=== PATIENT | female | born 1960 | race Caucasian/White ===

== ENCOUNTER → 2017-10-10 | Outpatient (CLI) | payer OTHER ==
[~2017-10-10] MED LIST: ACYC-57 PO; ALPR-411 PO; CARV3.12 PO; NORT25CA PO; NORT50CA PO; NSNN50; NXM/40 PO; WLC625 PO
== END | disposition home or self-care (01) ==
LOC: C.RDSM 08:00
PROVIDERS: ATTEND Orthopaedic Surgery
DX: M25.562 Pain in left knee (principal)

== ENCOUNTER → 2018-04-03 | Outpatient (CLI) | payer OTHER ==
[~2018-04-03] MED LIST changes: +ASPI81TA28 PO; +B-COTAB18 PO; +CALC600T9 PO; -CARV3.12 PO; +CHOL2000 PO; +CRG125 PO; +MOME6000; -NORT25CA PO; -NORT50CA PO; +NORT75CA4 PO; -NSNN50; +OMEG10007 PO; -WLC625 PO; +[UNRECOGNIZED DRUG - CODE] PO
== END | disposition home or self-care (01) ==
LOC: C.RDSM 14:29
PROVIDERS: ATTEND Orthopaedic Surgery
DX: M25.562 Pain in left knee (principal); Z98.890 Other specified postprocedural states

== ENCOUNTER 2019-01-24 08:57 | Inpatient (IN) ==
--- NOTE | 2019-01-01 15:50 | PAT Medication Instructions ---
Medication Instructions Date of Service January 01, 2019 Home Medications acyclovir [Zovirax] 200 mg PO QID alprazolam 0.5 mg PO BID PRN aspirin [Aspir-81] 81 mg PO QAM calcium carbonate-vitamin D3 1 tab PO QAM carvedilol 25 mg PO BID cholecalciferol (vitamin D3) 2,000 unit PO QAM cyanocobalamin (vitamin B-12) 1,500 mcg PO Q2D esomeprazole magnesium 40 mg PO QAM mometasone 2 spray INTRANASAL DAILY PRN nortriptyline 75 mg PO HS omega 3-ahg-wvq-fish oil [Fish Oil] 1 cap PO QAM vitamin B complex 1 tab PO QAM STOP taking 2 weeks before surgery omega 5-pqc-qwo-fish oil [Fish Oil] 1 cap PO QAM DO NOT take the morning of surgery calcium carbonate-vitamin D3 1 tab PO QAM cholecalciferol (vitamin D3) 2,000 unit PO QAM cyanocobalamin (vitamin B-12) 1,500 mcg PO Q2D vitamin B complex 1 tab PO QAM Take morning of surgery With a small sip of water, OTHERWISE NOTHING TO EAT OR DRINK AFTER MIDNIGHT: acyclovir [Zovirax] 200 mg PO QID alprazolam 0.5 mg PO BID PRN (if needed) aspirin [Aspir-81] 81 mg PO QAM carvedilol 25 mg PO BID esomeprazole magnesium 40 mg PO QAM mometasone 2 spray INTRANASAL DAILY PRN (if needed) Take evening before surgery acyclovir [Zovirax] 200 mg PO QID alprazolam 0.5 mg PO BID PRN (if needed) carvedilol 25 mg PO BID mometasone 2 spray INTRANASAL DAILY PRN (if needed) nortriptyline 75 mg PO HS Other Notes If you have any questions please call us at [phone] or [phone] or [phone] or [phone]
--- NOTE | 2019-01-02 12:30 | Anesthesiology Consultation ---
Date of Service January 02, 2019 Assessment & Plan (1) Encounter for pre-operative examination: - PCP addendum: 01/10/19: "clinically stable for surgery with no concerning labwork." - Patient anxious regarding anesthesia/surgery; reassurance given. "Does not want to hear anything during surgery"- requests deeper sedation if possible* Chart Review Chart Review: Acceptable Risk for Surgery and Patient seen in Pre Admission Testing History Surgery Operation Date: 01/24/19 11:55 Proposed Procedures p Left Total Hip Arthroplasty - Varghese Mukherjee MD Height/Weight Height: 5 ft 2 in Weight: 80.5 kg Allergies Allergy/AdvReac Type Severity Reaction Status Date / Time No Known Allergies Allergy Mild Verified 01/01/19 10:34 Medications Home Medications Medication Instructions Recorded Confirmed Last Taken acyclovir [Zovirax] 200 mg PO QID 01/01/19 01/01/19 Unknown alprazolam 0.5 mg PO BID PRN 01/01/19 01/01/19 Unknown aspirin [Aspir-81] 81 mg PO QAM 01/01/19 01/01/19 Unknown calcium carbonate-vitamin D3 1 tab PO QAM 01/01/19 01/01/19 Unknown [Calcium 500 + D] carvedilol 25 mg PO BID 01/01/19 01/01/19 Unknown cholecalciferol (vitamin D3) 2,000 unit PO QAM 01/01/19 01/01/19 Unknown [Vitamin D3] cyanocobalamin (vitamin B-12) 1,500 mcg PO Q2D 01/01/19 01/01/19 Unknown [Vitamin B-12] esomeprazole magnesium 40 mg PO QAM 01/01/19 01/01/19 Unknown mometasone 2 spray INTRANASAL DAILY PRN 01/01/19 01/01/19 Unknown nortriptyline 75 mg PO HS 01/01/19 01/01/19 Unknown omega 9-tph-guf-fish oil [Fish Oil] 1 cap PO QAM 01/01/19 01/01/19 Unknown vitamin B complex 1 tab PO QAM 01/01/19 01/01/19 Unknown Past Medical History Medical History Diverticular disease GERD (gastroesophageal reflux disease) CONTROLLED Hypertension Irritable bowel syndrome (IBS) Obesity Osteoarthritis Past Surgical History Surgical History History of arthroscopy KNEE, MENICUS. History of bilateral tubal ligation History of bunionectomy BUNIONECTOMY AND HAMMER TOE CORRECTION History of cholecystectomy History of hysterectomy History of nasal septoplasty DEVIATED SEPTUM REPAIR History of tooth extraction Past Anesthesia History No Hx of Anesthesia Complications and No Family Hx of Anesthesia Complications History of PONV No Motion Sickness Screening History of Motion Sickness: No Social History Smoking Status: Never smoker Do You Dip or Chew Tobacco: No Hx Alcohol Use: Yes Alcohol type: other alcohol intake frequency: a few times a week Hx Substance Use: No substance use type: does not use Exercise / Class Metabolic Activity II 4-5 Yardwork/Stairs/Walk up hill Review of Systems Patient denies chest pain, shortness of breath, dyspnea on exertion, cough, wheezing, palpitations. Physical Exam Vital Signs VITALS BP 134/85 P 71 TEMP 97.8 SP02 95%RA RESP 18 PHYSICAL Full neck and c-spine range of motion. Full TMJ range of motion. TMD 3.5 finger breaths Mallampati Score 2 Dentition: intact, implant on molar Lungs: clear throughout to auscultation Cardiac: regular rate and rhythm, no murmurs noted Spine: normal Carotid arteries: negative bruit Extremities: no edema Testing Electrocardiogram Date: 01/02/19 Findings: + NSR @ (73) Laboratory Results 01/02/19 12:37 01/02/19 12:37 Blood Type A Positive 01/02/19 12:37 Antibody Screen NEGATIVE 01/02/19 12:37 PT 11.1 Seconds (9.0-12.0) 01/02/19 12:37 INR 1.1 (0.9-1.1) 01/02/19 12:37 APTT 24.7 Seconds (21.0-31.0) 01/02/19 12:37 Hemoglobin A1c 5.6 % (4.5-5.6) 01/02/19 12:37 Urine Color Dark Yellow 01/02/19 12:37 Urine Appearance Clear (Clear) 01/02/19 12:37 Urine pH 7.0 (4.5-7.5) 01/02/19 12:37 Ur Specific [place] 1.012 (1.000-1.030) 01/02/19 12:37 Urine Protein Negative (Negative) 01/02/19 12:37 Urine Glucose (UA) Negative (Negative) 01/02/19 12:37 Urine Ketones Negative (Negative) 01/02/19 12:37 Urine Nitrite Negative (Negative) 01/02/19 12:37 Ur Leukocyte Esterase 1+ (Negative) H 01/02/19 12:37 Urine WBC (Auto) 1-5 /hpf (0-5) 01/02/19 12:37 Urine RBC (Auto) 0-4 /hpf (0-4) 01/02/19 12:37 U Hyaline Cast (Auto) 0 /lpf (0-5) 01/02/19 12:37 U Epithel Cells (Auto) >30 /lpf (0-5) H 01/02/19 12:37 Urine Bacteria (Auto) Negative (Negative) 01/02/19 12:37 01/02/19 12:37 Urine Culture - Final Urine,Clean Catch Three types or organisms present, all moderate counts probable skin jarad. No further identifications or sensitivities to follow.
[2019-01-02 14:28] LABS: Appearance Urine Clear (Clear); Bacteria Urine Automated Negative (Negative); Bilirubin Urine Negative (Negative); Blood Urine Negative (Negative); Cast Urine Automated 0 /lpf (0-5); Color Urine Dark Yellow; Epithelial Cell Urine Auto >30 /lpf (0-5); Glucose Urine UA Negative (Negative); Ketones Urine Negative (Negative); Leukocyte Esterase Urine 1+ (Negative); Nitrite Urine Negative (Negative); Protein Urine Negative (Negative); RBC Urine Automated 0-4 /hpf (0-4); Specific Gravity Urine 1.012 (1.000-1.030); Urobilinogen Urine Negative (Negative)
[2019-01-02 14:29] LABS: INR 1.1 (0.9-1.1); Partial Thromboplastin Ratio 0.9; Partial Thromboplastin Time 24.7 Seconds (21.0-31.0); Prothrombin Time 11.1 Seconds (9.0-12.0)
[2019-01-02 14:31] LABS: Albumin Level 3.7 gm/dl (3.4-5.0); BUN Creatinine Ratio 16.5 (10-20); Calcium 9.3 mg/dl (8.5-10.1); Est GFR (African American) 113.2; Est GFR (Non-African American) 97.7; Potassium 4.2 mmol/L (3.5-5.1)
[2019-01-02 14:34] LABS: Albumin Globulin Ratio 1.1 (0.9-2); Bilirubin,Total 0.5 mg/dl (0.2-1); Globulin 3.5 gm/dl (2.5-4.0); Total Protein 7.2 gm/dl (6.4-8.2)
--- NOTE | 2019-01-02 16:17 | History & Physical Report ---
Date of Service January 02, 2019 Assessment & Plan (1) Unilateral primary osteoarthritis, left hip: DIAGNOSES: Left hip osteoarthritis. PROCEDURE: Left total hip arthroplasty. PLAN: The patient is scheduled to undergo this procedure with Dr. Varghese Mukherjee at [facility] as an inpatient on 01/24/2019. Risks and complications of the procedure such as infection, bleeding, pain, scarring, nerve, blood vessel damage, weakness, wound problems, stiffness, incomplete relief of symptoms, heart attack, stroke, , hardware failure, loosening, wear, fracture, dislocation, leg length inequality, blood clots and embolism were explained to patient by Dr. Mukherjee at her visit on December 07 and informed consent to perform the procedure was obtained at that time. We are still awaiting preoperative medical clearance from the patient's primary care provider, Adelaida Martinez PA-C. We will also need to obtain a preoperative CBC with differential, complete metabolic panel, PT, INR, blood type and screen, urinalysis, urine culture, EKG, hemoglobin A1c and a nasal culture for MRSA. The patient states she will obtain this necessary testing before her preanesthesia clearance appointment this afternoon. The patient was given an order to obtain a rolling walker. I also instructed her about purchasing a hip kit from either [employer] or [employer]. She had x-rays performed with the sizing ball during today's visit. I educated her about the use of antibiotics prior to dental procedures after having joint replacement surgery. I also provided her with information about lectures provided by [facility] in regards to joint replacement surgery. She was given paperwork to obtain a handicap placard. We discussed discharge planning and the patient states she will most likely utilize [facility] to do in-home therapy as indicated. I advised her that I will provide her with a prescription for an opioid analgesic and for an anti-inflammatory medication. PDMP was checked during today's visit and no red flags were raised that would interfere with prescribing the narcotic medication. I also advised her that she will be using a baby aspirin twice daily for 30 days postoperatively to prevent blood clots and that she should purchase extra strength Tylenol to use with every other dose of the narcotic for pain control. The patient will need to sleep with an abduction pillow for 6 weeks postoperatively to prevent dislocation. She will be scheduled for a 2-week followup visit with me and at that time, we will remove her dressings. The patient verbalized understanding of all information provided during today's visit, thanked us for the care she has received and states if she has questions or concerns that should arise prior to her procedure date, she will contact the clinic accordingly. History of Present Illness Chief Complaint: CHIEF COMPLAINT: Left hip pain. Primary Care Provider: Adelaida Martinez PA-C HISTORY OF PRESENT ILLNESS: This 58-year-old female presents to clinic today for her preoperative history and physical. The patient complains of a longs tanding history of left hip pain localized to the groin area that has failed conservative treatment with use of nonsteroidal agents, injections and physical therapy. PAST SURGICAL HISTORY: Hysterectomy, left foot bunionectomy, hammertoe fixation, cholecystectomy, wisdom tooth extraction and a left knee partial medial meniscectomy with injection of calcium phosphate to fix a patellar fracture. PAST MEDICAL HISTORY: Anxiety, depression, hypertension, gastroesophageal reflux as well as hyperlipidemia and obesity. FAMILY HISTORY: Positive for heart disease, Alzheimer disease, hypertension, h yperlipidemia. ALLERGIES: The patient has no known drug allergies. CURRENT MEDICATIONS USED: EPA fish oil unknown dosage daily, vitamin B12 unknown dosage daily, carvedilol 3.125 mg oral tablet 25 mg twice daily, cholecalciferol, unknown dosage daily, magnesium SR with calcium unknown dosage daily, Nexium unknown dosage daily, nortriptyline 75 mg tablet daily, Xanax 0.5 mg oral tablet 1 tab twice daily as needed for anxiety. Allergies Allergy/AdvReac Type Severity Reaction Status Date / Time No Known Allergies Allergy Mild Verified 01/01/19 10:34 Home Medications Home Medications Medication Instructions Recorded Confirmed Type acyclovir [Zovirax] 200 mg PO QID 01/01/19 01/01/19 History alprazolam 0.5 mg PO BID PRN 01/01/19 01/01/19 History aspirin [Aspir-81] 81 mg PO QAM 01/01/19 01/01/19 History calcium carbonate-vitamin D3 1 tab PO QAM 01/01/19 01/01/19 History [Calcium 500 + D] carvedilol 25 mg PO BID 01/01/19 01/01/19 History cholecalciferol (vitamin D3) 2,000 unit PO QAM 01/01/19 01/01/19 History [Vitamin D3] cyanocobalamin (vitamin B-12) 1,500 mcg PO Q2D 01/01/19 01/01/19 History [Vitamin B-12] esomeprazole magnesium 40 mg PO QAM 01/01/19 01/01/19 History mometasone 2 spray INTRANASAL DAILY PRN 01/01/19 01/01/19 History nortriptyline 75 mg PO HS 01/01/19 01/01/19 History omega 8-qms-ejd-fish oil [Fish Oil] 1 cap PO QAM 01/01/19 01/01/19 History vitamin B complex 1 tab PO QAM 01/01/19 01/01/19 History Past Med/Surg History Medical History Diverticular disease GERD (gastroesophageal reflux disease) CONTROLLED Hypertension Irritable bowel syndrome (IBS) Obesity Osteoarthritis Surgical History History of arthroscopy KNEE, MENICUS. 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 No open skin lesions or discharge. Eyes: Pupils are equal and react to light and accommodating. Extraocular movements are intact. Throat: Posterior pharynx is clear with absence of edema, erythema or exudate. Cardiovascular exam: The patient has a regular rate and rhythm, no murmurs, gallops appreciated. Lungs: Auscultation of lung quintana reveals clear breath sounds throughout, no wheezing, rales or rhonchi. Abdomen is obese, nondistended, nontender with normoactive bowel sounds. Extremities: Left hip, the patient is able to flex to 100 degrees before causing recurrent right groin pain. External rotation is limited to 40 degrees, internal rotation to 5 degrees. The patient has a positive Scour and impingement tests, positive Stinchfield test. Log roll test is unremarkable. The patient experiences referred groin pain with active abduction and adduction without applied resistance. JAMES test is 3 1/2 fists. The patient has tenderness to palpation over the anterior groin. Otherwise, she is neurovascularly intact in the left lower extremity. Her calf is soft and supple, nontender to palpation. She has no appreciable quadriceps atrophy. Neurological exam: Cranial nerves 2-12 are intact. No motor or sensory deficit. Psychological/general exam: The patient is alert and oriented x3 with proper grooming and hygiene. Results & Data Laboratory Results Laboratory Results - last 24 hr 01/02/19 01/02/19 01/02/19 12:37 12:37 12:37 PT 11.1 INR 1.1 APTT 24.7 PTT Ratio 0.9 Sodium Potassium Chloride Carbon Dioxide Anion Gap BUN Creatinine Est Cr Clr Drug Dosing Est GFR ( Amer) Est GFR (Non-Af Amer) BUN/Creatinine Ratio Glucose Calcium Total Bilirubin AST ALT Alkaline Phosphatase Total Protein Albumin Globulin Albumin/Globulin Ratio Urine Color Dark Yellow Urine Appearance Clear Urine pH 7.0 Ur Specific [place] 1.012 Urine Protein Negative Urine Glucose (UA) Negative Urine Ketones Negative Urine Blood Negative Urine Nitrite Negative Urine Bilirubin Negative Urine Urobilinogen Negative Ur Leukocyte Esterase 1+ H Urine WBC (Auto) 1-5 Urine RBC (Auto) 0-4 U Hyaline Cast (Auto) 0 U Epithel Cells (Auto) >30 H Urine Bacteria (Auto) Negative Nasal Screen MRSA (PCR) Blood Type A Positive Antibody Screen NEGATIVE 01/02/19 01/02/19 12:37 12:37 PT INR APTT PTT Ratio Sodium 135 L Potassium 4.2 Chloride 102 Carbon Dioxide 28 Anion Gap 5.0 BUN 11 Creatinine 0.64 Est Cr Clr Drug Dosing 93.0 Est GFR ( Amer) 113.2 Est GFR (Non-Af Amer) 97.7 BUN/Creatinine Ratio 16.5 Glucose 101 H Calcium 9.3 Total Bilirubin 0.5 AST 27 ALT 44 Alkaline Phosphatase 125 H Total Protein 7.2 Albumin 3.7 Globulin 3.5 Albumin/Globulin Ratio 1.1 Urine Color Urine Appearance Urine pH Ur Specific [place] Urine Protein Urine Glucose (UA) Urine Ketones Urine Blood Urine Nitrite Urine Bilirubin Urine Urobilinogen Ur Leukocyte Esterase Urine WBC (Auto) Urine RBC (Auto) U Hyaline Cast (Auto) U Epithel Cells (Auto) Urine Bacteria (Auto) Nasal Screen MRSA (PCR) Negative Blood Type Antibody Screen
[2019-01-02 17:37] LABS: Basophils # (auto) 0.01 K/uL (0-0.2); Basophils % (auto) 0.2 %; Eosinophils # (auto) 0.14 K/uL (0-0.5); Eosinophils % (auto) 2.4 %; Hematocrit (blood only) 39.9 % (37-47); Hemoglobin 13.5 g/dL (12.0-16.0); Immature Granulocytes # (auto) 0.01 K/uL (0.00-0.02); Immature Granulocytes % (auto) 0.2 %; Lymphocytes # (auto) 1.79 K/uL (1.2-3.4); Lymphocytes % (auto) 30.6 %; Mean Corpuscular Hgb Conc 33.8 g/dL (32-36); Mean Corpuscular Volume 92.4 fL (80-100); Monocytes # (auto) 0.48 K/uL (0.11-0.59); Monocytes % (auto) 8.2 %; Neutrophils # (auto) 3.42 K/uL (1.4-6.5); Neutrophils % (auto) 58.4 %; Platelet Count 214 K/uL (130-400); Red Blood Count 4.32 M/uL (4.2-5.4); White Blood Count 5.85 K/uL (4.8-10.8)
[2019-01-03 05:38] LABS: Estimated Average Glucose 114 mg/dl; Hemoglobin A1C 5.6 % (4.5-5.6)
[~2019-01-24 08:57] MED LIST changes: +ACETAMINOPHEN 500 MG TAB PO SCH; -ACYC-57 PO; -ALPR-411 PO; -ASPI81TA28 PO; -B-COTAB18 PO; +BUPIVACAINE 0.5 % 5 MG/1 ML PF 10ML VIAL ONE; -CALC600T9 PO; +CEFAZOLIN 2000MG 2,000 MG/15 ML SYR IV SCH; -CHOL2000 PO; -CRG125 PO; +CeleBREX 200 MG CAP PO SCH; +FAMOTIDINE 20 MG TAB PO SCH; +LIDOCAINE HCL 2% 2 ML VIAL/AMP(20MG/ML) INFIL ONE; +LR 500ML BOLUS, THEN 15ML/HR IV SCH; +LR 60ML/HR IV SCH; +METOCLOPRAMIDE HCL 10 MG TABLET PO SCH; +MIDAZOLAM HCL 1 MG/ML 2ML VIAL ONE; -MOME6000; -NORT75CA4 PO; -NXM/40 PO; -OMEG10007 PO; +PROPOFOL IV EMULSION 10 MG/ML 20 ML VIAL IV ONE; +ROPIVACAINE 0.5% HCL/PF 150 MG, BUPIVACAINE 0.5% MPF 30 ML, EPINEPHrine 0.15 MG, Ketoro... INFIL SCH; +SCOPOLAMINE 1.5 MG TDSY TD SCH; +TRANEXAMIC ACID 1,000 MG **IV Intra-op IV SCH; +TRANEXAMIC ACID 1,000 MG **IV Pre-op IV SCH; -[UNRECOGNIZED DRUG - CODE] PO; +dexAMETHasone 4 MG TAB PO SCH
[2019-01-24] MEDS ORDERED: POVIDONE-IODINE OP SOLN 30 ML BTL ONE (10:34)
[2019-01-24] MEDS ORDERED: ORTHO JOINT ANESTHETIC ONE (10:34)
--- NOTE | 2019-01-24 10:57 | History & Physical Bridge Note ---
Date of Service January 24, 2019 History & Physical Bridge Note I have examined the patient, reviewed the History & Physical and in the interval since the performance of the History & Physical I have noted the following changes of clinical significance: no changes noted
[2019-01-24] MEDS ORDERED: ONDANSETRON INJ 2 MG/ML 2 ML VIAL IV PRN ×2 (11:48→12:54)
[2019-01-24] MEDS ORDERED: fentaNYL citrate 100 MCG/2 ML VIAL IV PRN (11:48)
[2019-01-24] MEDS ORDERED: ATROPINE SULFATE 0.1 MG/ML 10ML SYR IV PRN (11:48)
[2019-01-24] MEDS ORDERED: HYDROmorphone INJ 1 MG/ML SYRINGE IV PRN (11:48)
[2019-01-24] MEDS ORDERED: ePHEDrine sulfate 50 MG/ML AMP IV PRN (11:48)
[2019-01-24] MEDS ORDERED: PROPOFOL IV EMULSION 10 MG/ML 20 ML VIAL IV ONE (12:16)
--- NOTE | 2019-01-24 12:40 | Post Operative Brief Note ---
Immediate Post Op Note v1 Date of Surgery January 24, 2019 Pre & Post Diagnosis Operation Date: 01/24/19 11:15 Pre-Op Diagnosis: Left Hip Osteoarthritis Post-Op Diagnosis: Left Hip Osteoarthritis Procedure Operation Date: 01/24/19 11:15 Actual Procedures p Left Total Hip Arthroplasty(Left) - Varghese Mukherjee MD Surgeon Varghese Mukherjee MD Stapler Coil Unit BEKAH Ordoñez PA-C Estimated Blood Loss 50 Findings Consistent with Post-Op Diagnosis Fluids 1200 cc Specimens Femoral head Anesthesia Type Spinal MAC Complications none Disposition Accompanied Patient To Recovery: No Disposition: Recovery Room
[2019-01-24] MEDS ORDERED: ALUMINUM/MAGNESIUM SUSP 30 ML UDC PO PRN (12:54)
[2019-01-24] MEDS ORDERED: HYDROmorphone INJ 0.5 MG/0.5 ML SYR IV PRN (12:54)
[2019-01-24] MEDS ORDERED: BISACODYL 10 MG SUPP PR PRN (12:54)
[2019-01-24] MEDS ORDERED: METOCLOPRAMIDE HCL INJ 5 MG/ML 2 ML VIAL IV PRN (12:54)
[2019-01-24] MEDS ORDERED: DiphenhydrAMINE HCL 50 MG/ML VIAL IV PRN (12:54)
[2019-01-24] MEDS ORDERED: OXYCODONE HCL IR 5 MG TAB (IMMEDIATE RELEASE) PO PRN (12:54)
[2019-01-24] MEDS ORDERED: MAGNESIUM HYDROXIDE SUSP 30 ML UDC PO PRN (12:54)
[2019-01-24] MEDS ORDERED: NALOXONE HCL 0.4 MG/1 ML VIAL/CARP IV PRN (12:54)
--- NOTE | 2019-01-24 12:54 | Operative Report ---
Post Operative Report Pre & Post Diagnosis Operation Date: 01/24/19 11:15 Pre-Op Diagnosis: Left Hip Osteoarthritis Post-Op Diagnosis: Left Hip Osteoarthritis Procedure Operation Date: 01/24/19 11:15 Actual Procedures p Left Total Hip Arthroplasty(Left) - Varghese Mukherjee MD Surgeon Varghese Mukherjee MD Bench Manager BEKAH Ordoñez PA-C Estimated Blood Loss 50 Findings Consistent with Post-Op Diagnosis Specimens femoral head Complications none Disposition Accompanied Patient To Recovery: Yes Disposition: Recovery Room Description of Procedure I was present during the entire case assisting with wound closure and dressing application. Please see Dr. Mukherjee procedure note for specifics of the case. I attest to the content of the Intraoperative Record and any orders documented therein. Any exceptions are noted below.
[2019-01-24] MEDS ORDERED: ALPRAZolam 0.5 MG TABLET PO PRN (12:57)
[2019-01-24] MEDS ORDERED: ACYCLOVIR 200 MG CAP PO PRN (12:57)
[2019-01-24] MEDS ORDERED: FLUTICASONE PROPIONATE NA SPR 16 GM BTL PRN (12:57)
--- NOTE | 2019-01-24 13:33 | XRay Report ---
XR hip 1V LT w pelvis CLINICAL HISTORY: 58 years-old Female presenting with IN PACU - A/P PELVIS and LATERAL HIP . TECHNIQUE: Single frontal view of the pelvis and crosstable lateral view of the left hip were obtaine d. COMPARISON: 01/02/2019. FINDINGS: Total left hip arthroplasty new from prior exam. No periprosthetic fracture or periprosthetic lucency . No malalignment. The remainder of the bony pelvis is intact. Degenerative changes of the right hip with joint space loss and significant osteophytosis. IMPRESSION: Expected postsurgical appearance status post total left hip arthroplasty. Electronically signed by: Varghese Janesn M.D. 01/24/2019 1:31 PM
--- NOTE | 2019-01-24 13:36 | Operative Report ---
DATE OF OPERATION: 01/24/2019 PREOPERATIVE DIAGNOSIS: Left hip arthritis. POSTOPERATIVE DIAGNOSES: Left hip arthritis. OPERATION PERFORMED: Left total hip arthroplasty. SURGEON: Varghese Mukherjee MD. JUVENILE COURT JUDGE: Omar Ordoñez. ESTIMATED BLOOD LOSS: 50 mL. INTRAVENOUS FLUIDS: 1200 mL crystalloid. SPECIMENS: Femoral head. COMPLICATIONS: None. IMPLANTS: 1. DePuy Gription 54 mm outer diameter acetabular sector cup. 2. A 6.5 mm x 40 mm cancellous bone screw. 3. DePuy Ultrex polyethylene liner for a 36 femoral head. 4. DePuy [place] size 4 standard offset femoral stem with a 12/14 taper. 5. A 36 mm ceramic head with a +1.5 mm offset. INDICATIONS: Ms. Mcdaniels is a 58-year-old female who has had left hip pain that is affecting her activities of daily living and is refractory to conservative management. She has x-rays that show [id number] osteoarthritis. I had a long discussion with her about the risks and benefits of surgery, alternatives to surgery and expected outcomes. After reviewing all these, she elected to proceed with surgery. All questions were answered. Informed consent was signed. OPERATIVE FINDINGS: The patient had severe degenerative osteoarthritis. A ceramic on polyethylene bearing total hip arthroplasty was performed. DESCRIPTION OF THE OPERATION: The patient was identified in the preoperative holding area where her surgical site was marked. She was given a spinal by anesthesia, then brought back to the main operating room where she was placed on the operating room table and moved into the lateral decubitus position. Axillary roll was placed. All bony prominences were padded. Perioperative antibiotics were administered. She was prepped and draped in the normal sterile fashion. Prior to incision, a multidisciplinary timeout was called. All in the room were in agreement. We began by making a posterior approach to the hip through a 16 cm long incision. Fascia was incised in line with the incision. Charnley bow was placed. Trochanteric bursa was excised. The quadratus femoris and short external rotators as well as piriformis were dissected off the posterior aspect of the hip. Box cut was made in the capsule. The hip was dislocated. Femoral neck cut was made at 10 mm. Her lesser trochanter to the center of the head distance before the cut was measured at 55 mm. We then exposed the acetabulum. The labrum was excised. The contents of cotyloid fossa were removed with a curette and a rongeur. We then began to ream her acetabulum. We started with a size 44 reamer and medialized her acetabulum. We then sequentially reamed her up to a size 54 mm cup. This was then impacted down in position with 40 degrees of lateral opening and 25 degrees of anteversion. A single cancellous bone screw was placed up into the ilium. Excellent fixation was obtained. We then impacted the polyethylene liner for a 36-mm femoral head. Next, the femoral neck was exposed. The lateral hip capsule and the lateral neck were removed with a cookie cutter. A lateralizing reamer was used followed by the intramedullary reamer. She was reamed up to a size 4. We broached her all the way up to a size 4. We then trialed with a +1.5 mm femoral head. We measured her lesser trochanter to center of the femoral head distance and it was 55 mm matching her [place] hip. The patient's leg lengths were symmetric. She had no impingement in external rotation and extension. She was stable in the sleeper position. At 90 degrees of hip flexion, she could be internally rotated to 50 degrees before leaving out of the cup. I was very happy with the stability exam. Therefore, I removed all the trial components. The intramedullary canal was irrigated and dried. The real size 4 [place] femoral stem with a standard offset was impacted down into position. It sat at the same level as the broach. Therefore, the +1.5 mm femoral head was opened up and gently impacted onto the trunnion. The hip was then atraumatically reduced. At this point, the wound was irrigated with Betadine that was allowed to sit for 3 minutes. The subcutaneous tissues and the periarticular soft tissues were injected with our injection cocktail. We then closed the piriformis and short external rotators with capsule through bone tunnels in the greater trochanter. The fascia was run with a looped #1 PDS. The subcutaneous tissues were closed in 2 layers of running #1 PDS. The deep dermis was closed using 2-0 Vicryl. ZipLine was placed followed by Silverlon dressing and a compressive dressing. The patient was rolled supine, placed in an abduction pillow. Her sedation was lifted and she was transferred to the recovery room in stable condition. POSTOPERATIVE COURSE: The patient will be admitted to the floor overnight for pain control and monitoring. She will be on aspirin for DVT prophylaxis. She will observe posterior hip precautions. I attest to the content of the Intraoperative Record and any orders documented therein. Any exception s are noted below.
--- NOTE | 2019-01-24 14:31 | Anesthesiology Progress Note ---
Date of Service January 24, 2019 Anesthesia Post Procedure Vital Signs Vital Signs: Temp Pulse Pulse Resp BP Pulse Ox 01/24/19 14:00 86 18 107/70 95 01/24/19 13:45 85 19 110/79 99 01/24/19 13:30 36.5 C 82 17 113/74 97 01/24/19 13:20 84 16 122/77 97 01/24/19 13:10 82 17 107/70 97 01/24/19 13:00 82 16 107/70 98 01/24/19 12:52 36.1 C L 84 20 89/65 L 90 01/24/19 09:30 36.8 C 93 H 20 124/86 95 Pain Intensity Left Hip: Pain Intensity: 4 Transfer of Care Handoff Completed per policy Notes Mental Status: alert / awake / arousable and participated in evaluation Patient Amnestic to Procedure: Yes Nausea / Vomiting: adequately controlled Pain: adequately controlled Airway Patency, RR, SpO2: stable & adequate BP & HR: stable & adequate Hydration State: stable & adequate Neuraxial Anesthesia: was administered and sensory block is resolving Anesthetic Complications: no major complications apparent and Pt Satisfied with anesthetic care
[2019-01-24] MEDS: ACETAMINOPHEN 500 MG TAB PO SCH ×2 (16:00→22:25)
[2019-01-24] MEDS: KETOROLAC 30 MG/ML VIAL IV SCH ×2 (16:00→22:25)
[2019-01-24] MEDS: CHECK SCOPOLAMINE PATCH PLACEMENT SCH ×2 (16:00→23:24)
[2019-01-24] MEDS: SODIUM CHLORIDE 0.9% 1000ML 1,000 ML IV SCH (17:47)
[2019-01-24] MEDS: CEFAZOLIN 2000MG 2,000 MG/15 ML SYR IV SCH (18:00)
[2019-01-24] MEDS ORDERED: TRANEXAMIC ACID 1,000 MG in 0.9 % SODIUM CHLORIDE 100 ML IV SCH (19:00)
[2019-01-24] MEDS: ASPIRIN 81 MG ECTAB PO SCH (20:24)
[2019-01-24] MEDS: DOCUSATE SODIUM 100 MG CAP PO SCH (20:24)
[2019-01-24] MEDS: CARVEDILOL 25 MG TAB PO SCH (20:24)
[2019-01-24] MEDS ORDERED: NORTRIPTYLINE HCL 25 MG CAP PO SCH (21:00)
[2019-01-24] MEDS ORDERED: SENNA 8.6 MG TAB PO SCH (21:00)
[2019-01-25] MEDS: CEFAZOLIN 2000MG 2,000 MG/15 ML SYR IV SCH (02:34)
[2019-01-25] MEDS: KETOROLAC 30 MG/ML VIAL IV SCH ×2 (04:38→09:21)
[2019-01-25] MEDS: ACETAMINOPHEN 500 MG TAB PO SCH (05:27)
[2019-01-25 05:39] LABS: Hematocrit (blood only) 31.7 % (37-47); Hemoglobin 10.8 g/dL (12.0-16.0); Immature Granulocytes # (auto) 0.03 K/uL (0.00-0.02); Immature Granulocytes % (auto) 0.3 %; Lymphocytes # (auto) 0.65 K/uL (1.2-3.4); Lymphocytes % (auto) 6.2 %; Mean Corpuscular Hgb Conc 34.1 g/dL (32-36); Mean Corpuscular Volume 91.1 fL (80-100); Mean Platelet Volume 9.3 fL (7.4-10.4); Monocytes # (auto) 0.69 K/uL (0.11-0.59); Monocytes % (auto) 6.6 %; Neutrophils % (auto) 86.9 %; Platelet Count 175 K/uL (130-400); RDW Coefficient of Variation 12.9 % (11.5-14.5); Red Blood Count 3.48 M/uL (4.2-5.4); White Blood Count 10.47 K/uL (4.8-10.8)
[2019-01-25 06:06] LABS: BUN Creatinine Ratio 15.7 (10-20); Calcium 8.3 mg/dl (8.5-10.1); Creatinine Clr Calc Pharmacy 108.5 ml/min; Est GFR (Non-African American) 102.7; Potassium 3.9 mmol/L (3.5-5.1)
[2019-01-25] MEDS: SODIUM CHLORIDE 0.9% 1000ML 1,000 ML IV SCH (06:06)
[2019-01-25] MEDS: DOCUSATE SODIUM 100 MG CAP PO SCH (07:59)
[2019-01-25] MEDS: CARVEDILOL 25 MG TAB PO SCH (07:59)
[2019-01-25] MEDS: ASPIRIN 81 MG ECTAB PO SCH (07:59)
[2019-01-25] MEDS ORDERED: dexAMETHasone 4 MG TAB PO SCH (08:00)
--- NOTE | 2019-01-25 08:13 | Anesthesiology Progress Note ---
Date of Service January 25, 2019 Anesthesia Post Procedure Vital Signs Vital Signs: Temp Pulse Pulse Pulse Pulse Resp BP 01/25/19 07:59 36.7 C 90 18 01/25/19 02:27 36.5 C 86 16 01/24/19 23:21 36.8 C 88 16 01/24/19 20:21 93 H 118/80 01/24/19 19:32 36.7 C 90 16 01/24/19 17:15 36.7 C 87 16 01/24/19 16:15 36.5 C 89 16 01/24/19 15:15 36.6 C 91 H 16 01/24/19 14:44 36.8 C 88 18 01/24/19 14:00 86 18 01/24/19 13:45 85 19 01/24/19 13:30 36.5 C 82 17 01/24/19 13:20 84 16 01/24/19 13:10 82 17 01/24/19 13:00 82 16 01/24/19 12:52 36.1 C L 84 20 01/24/19 09:30 36.8 C 93 H 20 BP Pulse Ox 01/25/19 07:59 116/78 94 01/25/19 02:27 115/77 91 01/24/19 23:21 116/75 91 01/24/19 20:21 01/24/19 19:32 121/80 97 01/24/19 17:15 112/74 94 01/24/19 16:15 104/68 94 01/24/19 15:15 117/79 96 01/24/19 14:44 123/85 98 01/24/19 14:00 107/70 95 01/24/19 13:45 110/79 99 01/24/19 13:30 113/74 97 01/24/19 13:20 122/77 97 01/24/19 13:10 107/70 97 01/24/19 13:00 107/70 98 01/24/19 12:52 89/65 L 90 01/24/19 09:30 124/86 95 Pain Intensity Left Hip: Pain Intensity: 2 Notes Mental Status: alert / awake / arousable Nausea / Vomiting: adequately controlled Pain: adequately controlled Airway Patency, RR, SpO2: stable & adequate BP & HR: stable & adequate Hydration State: stable & adequate Neuraxial Anesthesia: was administered and sensory block resolved Anesthetic Complications: no major complications apparent and Pt Satisfied with anesthetic care
[2019-01-25] MEDS ORDERED: CYANOCOBALAMIN 500 MCG TABLET (VITAMIN B-12) PO SCH (09:00)
[2019-01-25] MEDS ORDERED: CALCIUM 600MG + VIT D 400 IU TAB PO SCH (09:00)
[2019-01-25] MEDS ORDERED: CHOLECALCIFEROL 1,000 UNITS TAB PO SCH (09:00)
[2019-01-25] MEDS ORDERED: OMEGA-3 (PURIFIED FISH OIL) 1 GM CAP PO SCH (09:00)
[2019-01-25] MEDS ORDERED: ASPIRIN 81 MG ECTAB PO SCH (09:00)
[2019-01-25] MEDS ORDERED: PANTOprazole 40 MG TAB PO SCH (09:00)
[2019-01-25] MEDS ORDERED: VITAMIN B COMPLEX TAB PO SCH (09:00)
[2019-01-25] MEDS ORDERED: MULTIVITAMIN TAB PO SCH (09:00)
--- NOTE | 2019-01-25 10:18 | Orthopedic Progress Note ---
Date of Service January 25, 2019 Assessment & Plan (1) S/P total hip arthroplasty: PT/OT with in patient Plan on discharge after lunch today Pain control with PO meds DVT prophylaxis with Aspirin and Stocking Total hip precaution Abduction pillow use for 6 wks WBAT with walker assistance F/u at [facility] as scheduled in 2 wks Subjective Patient is day 1 s/p left total hip arthroplasty. Doing very well. Sitting at chair. Just finished with AM PT. Has no complaints of CP, SOB, nausea, vomiting, fever, chills or sweats. Pain in hip well controlled with PO meds. Patient will be ready for discharge after being seen by OT. Review of Systems Review of Systems: All systems reviewed & are unremarkable except as noted in HPI & below Physical Exam Physical Exam: Left Hip: Non-tender to palpation over incision site. Dressing clean, dry and intact. No pain with SLRT. NO pain with log roll, light internal or external rotation. Quad strength 4/5. Calf soft and supple. NV intact Results & Data Vital Signs (Past 12 Hours) Vital Signs Temp Pulse Pulse Resp BP Pulse Ox 01/25/19 07:59 36.7 C 90 18 116/78 94 01/25/19 02:27 36.5 C 86 16 115/77 91 01/24/19 23:21 36.8 C 88 16 116/75 91
--- NOTE | 2019-01-25 11:54 | Discharge Summary ---
Date of Service January 25, 2019 Admission HPI Per Admitting Provider HISTORY OF PRESENT ILLNESS: This 58-year-old female presents to clinic today for her preoperative history and physical. The patient complains of a longstanding history of left hip pain localized to the groin area that has failed conservative treatment with use of nonsteroidal agents, injections and physical therapy. PAST SURGICAL HISTORY: Hysterectomy, left foot bunionectomy, hammertoe fixation, cholecystectomy, wisdom tooth extraction and a left knee partial medial meniscectomy with injection of calcium phosphate to fix a patellar fracture. PAST MEDICAL HISTORY: Anxiety, depression, hypertension, gastroesophageal reflux as well as hyperlipidemia and obesity. FAMILY HISTORY: Positive for heart disease, Alzheimer disease, hypertension, hyperlipidemia. ALLERGIES: The patient has no known drug allergies. CURRENT MEDICATIONS USED: EPA fish oil unknown dosage daily, vitamin B12 unknown dosage daily, carvedilol 3.125 mg oral tablet 25 mg twice daily, cholecalciferol, unknown dosage daily, magnesium SR with calcium unknown dosage daily, Nexium unknown dosage daily, nortriptyline 75 mg tablet daily, Xanax 0.5 mg oral tablet 1 tab twice daily as needed for anxiety. Admission Exam Per Admitting Provider Physical Exam Vital Signs (Past 24 Hours): PHYSICAL EXAMINATION: Skin: The patient's skin is normal in appearance. No open skin lesions or discharge. Eyes: Pupils are equal and react to light and accommodating. Extraocular movements are intact. Throat: Posterior pharynx is clear with absence of edema, erythema or exudate. Cardiovascular exam: The patient has a regular rate and rhythm, no murmurs, gallops appreciated. Lungs: Auscultation of lung quintana reveals clear breath sounds throughout, no wheezing, rales or rhonchi. Abdomen is obese, nondistended, nontender with normoactive bowel sounds. Extremities: Left hip, the patient is able to flex to 100 degrees before causing recurrent right groin pain. External rotation is limited to 40 degrees, internal rotation to 5 degrees. The patient has a positive Scour and impingement tests, positive Stinchfield test. Log roll test is unremarkable. The patient experiences referred groin pain with active abduction and adduction without applied resistance. JAMES test is 3 1/2 fists. The patient has tenderness to palpation over the anterior groin. Otherwise, she is neurovascularly intact in the left lower extremity. Her calf is soft and supple, nontender to palpation. She has no appreciable quadriceps atrophy. Neurological exam: Cranial nerves 2-12 are intact. No motor or sensory deficit. Psychological/general exam: The patient is alert and oriented x3 with proper grooming and hygiene. Principal Diagnosis Left hip osteoarthritis Discharge Exam Physical Exam Physical Exam: Left Hip: Non-tender to palpation over incision site. Dressing clean, dry and intact. No pain with SLRT. NO pain with log roll, light internal or external rotation. Quad strength 4/5. Calf soft and supple. NV intact Discharge Data Allergies Allergy/AdvReac Type Severity Reaction Status Date / Time No Known Allergies Allergy Mild Verified 01/24/19 09:19 Consultations 01/25/19 08:00 Consult Case Management - Discharge Planning Routine Procedures Performed Operation Date: 01/24/19 11:15 Actual Procedures p Left Total Hip Arthroplasty(Left) - Varghese Mukherjee MD Ordered Studies 01/24/19 05:00 US - OR guided needle placemen Routine Hospital Course (1) S/P total hip arthroplasty: Post op day 1 s/p Left CARA. Did well overnight. No issues or complaints. Ready for discharge. PT/OT with in patient Plan on discharge after lunch today Pain control with PO meds DVT prophylaxis with Aspirin and Stocking Total hip precaution Abduction pillow use for 6 wks WBAT with walker assistance F/u at [facility] as scheduled in 2 wks Total Time Total Time Spent Total Time Spent (In Minutes): 20 Total Time Includes: Examination of the Patient, Discharge Planning and Medication Reconciliation Discharge Plan Discharge Items Patient Disposition: Home - Self-Care Reason For Visit: Left Hip Osteoarthritis Discharge Diagnosis: left hip osteoarthritis Discharge Goals: Decrease discomfort, Improve function and Increase independence Activity: As commented below Lifting: None Bathing: Keep incision dry Bathing Comment: May shower tomorrow Sexual Activity: Wait until after follow-up appointment Exercise/Sports: Wait until after follow-up appointment Driving/Machine Use Comment: No driving until cleared by orthropedic specialist Weightbearing: Left weightbearing Weightbearing Comment: as tolerated with walker assistance Non-emergency contact: Primary Care Provider Call non-emergency contact if: you have any medication questions, your pain is not controlled, your temperature is above 101.5, your wound has increased drainage and your wound pain has increased Follow-up/Referrals: Juan,Adelaida J., PA-C [Primary Care Provider] - Diet: Regular Addtl Provider Instructions: Post-operative Instructions Dear Patient and Family/Friends, Before you are discharged from the hospital, it is important to know what to expect when you get home after surgery. To that end, we have created this sheet of discharge instructions which covers many commonly asked questions. Make sure you go through this sheet in its entirety with your nurse before you are discharged. Please note that we will go over the specifics of your surgery and recovery when you return for your first post-operative visit. Sincerely, Dr. Mukherjee MEDICATIONS: You will be discharged on medications for pain control and for blood clot prevention. Oxycodone 5 mg will be prescribed. You make take this medication every 4-6 hrs as needed for pain. This medication is a narcotic and may cause drowsiness and constipation. You will also be prescribed Diclofenac Sodium 75 mg. This medication is for pain control. It is an NSAID. You make taked 2 tabs by mouth twice daily for 30 days post operatively. Also you should purchase OTC extra strength Tylenol (500mg) to take with every other dose of the Oxycodone for the first few days post op, then may take 1-2 tabs every 6 hrs for pain control. Lastly, you will need to purchase Aspirin 81 mg to be taken twice daily for blood clot prevention. Pain Expect to be in a fair amount of pain after surgery. Remember, our goal is not to eliminate your pain, but to make it tolerable. It is a good idea to stay ahead of your pain by taking the medications you were prescribed once you get home. Typically, the pain starts improving 3-7 days after surgery. You should start weaning off the narcotic pain medication (oxycodone, hydrocodone, hydromorphone, morphine) as soon as your pain improves. Please call our office if your pain is not adequately controlled. Ice Ice your operative site at least 5 times a day for 15-30 minutes at a time. Make sure you have a thin cloth between the ice or cooling unit and your skin to prevent genao bite. This is especially important if you received a nerve block. Continue icing your operative site for the first 5-7 days after surgery, then as needed. Diet/Nausea/Vomiting Start by drinking clear liquids and eating crackers. If you can tolerate this, then you may resume your normal diet. If you feel nauseated or vomit, take Zofran/ondansetron (if prescribed). Please call our office if you have intractable nausea or vomiting, or, if after hours, you may go to the Emergency Room for help. Constipation Constipation is a common side effect of narcotic pain medication. If you have not had a bowel movement within 2 days after surgery, we recommend purchasing an over the counter laxative such as Milk of Magnesia, Dulcolax, or Miralax from a local pharmacy, and taking it as instructed. Call our clinic if any questions. Nerve block The anesthesia team sometimes places a nerve block to help with post-operative pain control. This results in significant numbness and inability to move the extremity. The nerve block usually wears off in 8-12 hours, but sometimes can last up to 24 hours. Please call our office if you are still unable to move your extremity after 24 hours, unless you received a pain pump to take home. Nerve blocks typically wear off quickly, so start taking pain medication as soon as you start feeling soreness near your surgical site. Weight bearing and Range of Motion. Do not bear any weight through your operative extremity immediately after surgery. If you had upper extremity surgery, do not lift anything with that arm. If you are in a knee brace, keep it locked in place until your follow-up. We will discuss your weight bearing, range of motion, and lifting restrictions in detail at your first post-operative appointment. Continuous Passive Motion (CPM) Machine If you were prescribed a CPM machine, it will start after your first post- operative appointment, at which time we will give you instructions on the range of motion settings and duration of treatment Physical therapy You will be given a prescription for physical therapy or occupational therapy at your first post-operative appointment. Typically, patients start therapy within 1 week of surgery Wound care and showering We will inspect your wound at your first post-operative visit, and may do a dressing change at that time. Most patients will be in a water-proof dressing that is removed 14 days after surgery. It is normal to see some dried blood on the dressing. Do not remove your dressing, paper strips or sutures yourself unless you are given permission. Showering is allowed the day after surgery. Do not scrub or remove any dressings. The wound should not be submerged underwater (i.e. in a bathtub or pool) until 4 weeks after surgery EJ stockings If you were given white stockings, these are to be worn at all times except to shower (on both legs) for the first 2 weeks after surgery. Driving You may not drive while taking narcotic pain medication or while in a cast, splint, sling or brace. You, the patient, need to make the final determination about when you are safe to drive, however, the earliest you may consider driving after surgery is below: Hand/Wrist/Elbow Surgery: 3 days Shoulder Surgery: 2 weeks Hip,/Knee/Ankle Surgery: 4 weeks Fracture repair: 6 weeks Return to Work Your return to work depends on what surgery was done and what type of work you do. Please bring any paperwork your employer needs completed to your first post-operative visit. Also, bring a description of your job duties, as this helps us to understand what risks you may face at work. Travel Avoid long distance travel (greater than 1 hour) in airplanes and cars for the first 6 weeks after surgery. If you must travel, you need to have a Doppler ultrasound done before you travel to rule out a blood clot in your legs. Follow-up You should have a follow-up appointment already scheduled 1-2 days after surgery. If not, please contact our office to make this appointment before you leave the hospital. When to call the office It is normal to have swelling and bruising in the limb that was operated on. This will improve with time. It is also normal to have fevers for the first 2 days after surgery. Reasons you should call your doctor include: Uncontrolled pain; Nausea, vomiting, or constipation that does not improve with medication; Fevers over 101.5, chills, sweats; Drainage or bleeding from the wound; Foul odor; Spreading areas of redness; Any other concerns Prescriptions: New diclofenac sodium 75 mg tablet,delayed release (DR/EC) 75 mg PO BID PRN (Reason: pain) 30 Days Qty: 60 RF: 1 oxycodone 5 mg tablet 5 mg PO .q4-6 PRN (Reason: pain) Qty: 30 RF: 0 Continued carvedilol 25 mg Tablet 25 mg PO BID RF: 0 cyanocobalamin (vitamin B-12) [Vitamin B-12] 1,000 mcg Tablet 1,500 mcg PO Q2D RF: 0 acyclovir [Zovirax] 200 mg Capsule 200 mg PO QID PRN (Reason: Cold Sores) RF: 0 aspirin [Aspir-81] 81 mg Tablet,Delayed Release (Dr/Ec) 81 mg PO QAM RF: 0 alprazolam 0.5 mg Tablet 0.5 mg PO BID PRN (Reason: Anxiety) RF: 0 nortriptyline 75 mg Capsule 75 mg PO HS RF: 0 esomeprazole magnesium 40 mg Capsule,Delayed Release(Dr/Ec) 40 mg PO QAM RF: 0 mometasone 50 mcg/actuation [place],Non-Aerosol 2 spray INTRANASAL DAILY PRN (Reason: PRN) RF: 0 vitamin B complex Tablet 1 tab PO QAM RF: 0 calcium carbonate-vitamin D3 [Calcium 500 + D] 500 mg(1,250mg) -200 unit Tablet 1 tab PO QAM RF: 0 cholecalciferol (vitamin D3) [Vitamin D3] 2,000 unit Tablet 2,000 unit PO QAM RF: 0 omega 7-ylo-xho-fish oil [Fish Oil] 1,000 mg (120 mg-180 mg) Capsule 1 cap PO QAM RF: 0 Stand-Alone Forms: [facility], Op[facility] Discharge Orders: Discharge Order (Routine); Ordered 01/25/19 Ordered By: Emmanuel Ordoñez Admission Data Admit Date/Time: 01/24/19 12:54 Attending Provider: Varghese Mukherjee Admit Provider: Varghese Mukherjee Primary Care Provider: Adelaida Martinez Service: Surgical Services Other Interventions: Discharge Summary Assessment (RN) Last Done: 01/25/19 10:50 Pending Studies at Discharge: No
[2019-01-25] MEDS ORDERED: CeleBREX 200 MG CAP PO SCH (21:00)
== END 2019-01-25 12:56 | disposition home or self-care (01) | DRG 470 ==
LOC: ASU 08:57 → 3E 12:54

== ENCOUNTER 2019-05-30 04:54 | Inpatient (IN) ==
--- NOTE | 2019-05-17 13:46 | PAT Medication Instructions ---
Medication Instructions Date of Service May 17, 2019 Home Medications acyclovir [Zovirax] 200 mg PO UD PRN alprazolam 0.5 mg PO BID PRN aspirin [Aspir-81] 81 mg PO QAM calcium carbonate-vitamin D3 [Calcium 500 + D] 1 tab PO QAM carvedilol 25 mg PO BID cholecalciferol (vitamin D3) [Vitamin D3] 2,000 unit PO QAM cyanocobalamin (vitamin B-12) [Vitamin B-12] 1,500 mcg PO Q2D esomeprazole magnesium 40 mg PO QAM mometasone 2 spray INTRANASAL DAILY PRN nortriptyline 75 mg PO HS omega 0-fjw-nid-fish oil [Fish Oil] 1 cap PO QAM vitamin B complex 1 tab PO QAM Continue as directed acyclovir [Zovirax] 200 mg PO UD PRN (if needed) STOP taking 2 weeks before surgery (or as soon as possible if surgery is within 2 weeks) omega 5-cfj-pyf-fish oil [Fish Oil] 1 cap PO QAM DO NOT take the morning of surgery calcium carbonate-vitamin D3 [Calcium 500 + D] 1 tab PO QAM cholecalciferol (vitamin D3) [Vitamin D3] 2,000 unit PO QAM cyanocobalamin (vitamin B-12) [Vitamin B-12] 1,500 mcg PO Q2D vitamin B complex 1 tab PO QAM Take morning of surgery With a small sip of water, OTHERWISE NOTHING TO EAT OR DRINK AFTER MIDNIGHT: alprazolam 0.5 mg PO BID PRN (if needed) aspirin [Aspir-81] 81 mg PO QAM carvedilol 25 mg PO BID esomeprazole magnesium 40 mg PO QAM mometasone 2 spray INTRANASAL DAILY PRN (if needed) Take evening before surgery alprazolam 0.5 mg PO BID PRN (if needed) carvedilol 25 mg PO BID mometasone 2 spray INTRANASAL DAILY PRN (if needed) nortriptyline 75 mg PO HS Other Notes If you have any questions please call us at [phone] or [phone] or [phone] or [phone]
--- NOTE | 2019-05-17 13:51 | Anesthesiology Consultation ---
Date of Service May 17, 2019 Assessment & Plan (1) Encounter for pre-operative examination: Chart Review Chart Review: Acceptable Risk for Surgery (pending PCP clearance scheduled 05/20 (Dr. Linda)) and Patient seen in Pre Admission Testing Teaching & Discussion Pre-Anesthesia Teaching/Discussion Notes: Instructed NPO after midnight before surgery,except medications with 15 cc of water. Medication instructions provided according to the PAT guidelines. History Surgery Operation Date: 05/30/19 07:15 Proposed Procedures p Right Total Hip Arthroplasty - Varghese Mukherjee MD Height/Weight Height: 5 ft 2 in Weight: 83.3 kg Allergies Allergy/AdvReac Type Severity Reaction Status Date / Time No Known Allergies Allergy Mild Verified 05/10/19 08:01 Medications Home Medications Medication Instructions Recorded Confirmed Last Taken acyclovir [Zovirax] 200 mg PO UD PRN 01/01/19 05/10/19 Unknown alprazolam 0.5 mg PO BID PRN 01/01/19 05/10/19 01/23/19 22:00 aspirin [Aspir-81] 81 mg PO QAM 01/01/19 05/10/19 01/24/19 07:50 calcium carbonate-vitamin D3 1 tab PO QAM 01/01/19 05/10/19 01/23/19 10:00 [Calcium 500 + D] carvedilol 25 mg PO BID 01/01/19 05/10/19 01/24/19 07:50 cholecalciferol (vitamin D3) 2,000 unit PO QAM 01/01/19 05/10/19 01/23/19 10:00 [Vitamin D3] cyanocobalamin (vitamin B-12) 1,500 mcg PO Q2D 01/01/19 05/10/19 01/23/19 10:00 [Vitamin B-12] esomeprazole magnesium 40 mg PO QAM 01/01/19 05/10/19 01/24/19 07:50 mometasone 2 spray INTRANASAL DAILY PRN 01/01/19 05/10/19 01/24/19 07:50 nortriptyline 75 mg PO HS 01/01/19 05/10/19 01/23/19 22:00 omega 4-utz-mhg-fish oil [Fish Oil] 1 cap PO QAM 01/01/19 05/10/19 01/09/19 10:00 vitamin B complex 1 tab PO QAM 01/01/19 05/10/19 01/23/19 10:00 Past Medical History Medical History Diverticular disease GERD (gastroesophageal reflux disease) controlled Hypertension Irritable bowel syndrome (IBS) Obesity Osteoarthritis Exercise / Class Metabolic Activity II 4-5 Yardwork/Stairs/Walk up hill Past Surgical History Surgical History History of arthroscopy KNEE, MENICUS. -LEFT History of bilateral tubal ligation History of bunionectomy BUNIONECTOMY AND HAMMER TOE CORRECTION History of cholecystectomy History of colonoscopy History of endoscopy History of hysterectomy History of nasal septoplasty DEVIATED SEPTUM REPAIR History of tooth extraction History of total left hip arthroplasty Left CARA: 01/24/19: SAB x 2 (L3-L4 --> L4-L5) at [facility] Past Anesthesia History No Hx of Anesthesia Complications and No Family Hx of Anesthesia Complications History of PONV No Hx of PONV and No Hx of Motion Sickness Social History Smoking Status: Never smoker Do You Dip or Chew Tobacco: No Hx Alcohol Use: Yes Alcohol type: wine alcohol intake frequency: other Alcohol Intake Frequency Comment: WEEKENDS WITH DINNER/SPECIAL OCCASSIONS Hx Substance Use: No substance use type: does not use Review of Systems Reflux controlled. Patient denies chest pain, shortness of breath, dyspnea on exertion, cough, wheezing, palpitations. Physical Exam Vital Signs VITALS BP 133/88 P 89 TEMP 98.4 SP02 94%RA RESP 16 PHYSICAL Full neck and c-spine range of motion. Full TMJ range of motion. TMD 3.5 finger breaths Mallampati Score 2 Dentition: intact, implant on molar Lungs: clear throughout to auscultation Cardiac: regular rate and rhythm, no murmurs noted Spine: normal Carotid arteries: negative bruit Extremities: no edema Testing Laboratory Results 05/17/19 14:00 05/17/19 14:00 PT 10.8 Seconds (9.0-12.0) 05/17/19 14:00 INR 1.1 (0.9-1.1) 05/17/19 14:00 APTT 24.5 Seconds (21.0-31.0) 05/17/19 14:00 Urine Color Dark Yellow 05/17/19 14:00 Urine Appearance Clear (Clear) 05/17/19 14:00 Urine pH 7.5 (4.5-7.5) 05/17/19 14:00 Ur Specific [place] 1.009 (1.000-1.030) 05/17/19 14:00 Urine Protein Negative (Negative) 05/17/19 14:00 Urine Glucose (UA) Negative (Negative) 05/17/19 14:00 Urine Ketones Negative (Negative) 05/17/19 14:00 Urine Nitrite Negative (Negative) 05/17/19 14:00 Ur Leukocyte Esterase 1+ (Negative) H 05/17/19 14:00 Urine WBC (Auto) 1-5 /hpf (0-5) 05/17/19 14:00 Urine RBC (Auto) 0-4 /hpf (0-4) 05/17/19 14:00 U Hyaline Cast (Auto) 1-5 /lpf (0-5) 05/17/19 14:00 U Epithel Cells (Auto) >30 /lpf (0-5) H 05/17/19 14:00 Urine Bacteria (Auto) Negative (Negative) 05/17/19 14:00 Blood Type A Positive 05/17/19 14:00 Antibody Screen NEGATIVE 05/17/19 14:00 Electrocardiogram Date: 01/02/19 + NSR @ (57)
[2019-05-17 15:28] LABS: Appearance Urine Clear (Clear); Bacteria Urine Automated Negative (Negative); Bilirubin Urine Negative (Negative); Blood Urine Negative (Negative); Color Urine Dark Yellow; Epithelial Cell Urine Auto >30 /lpf (0-5); Glucose Urine UA Negative (Negative); Ketones Urine Negative (Negative); Leukocyte Esterase Urine 1+ (Negative); Nitrite Urine Negative (Negative); Protein Urine Negative (Negative); RBC Urine Automated 0-4 /hpf (0-4); Specific Gravity Urine 1.009 (1.000-1.030); Urobilinogen Urine Negative (Negative); pH Urine 7.5 (4.5-7.5)
[2019-05-17 15:33] LABS: Albumin Level 3.7 gm/dl (3.4-5.0); BUN Creatinine Ratio 10.3 (10-20); Calcium 9.4 mg/dl (8.5-10.1); Creatinine Clr Calc Pharmacy 93.5 ml/min; Est GFR (African American) 112.4; Potassium 4.2 mmol/L (3.5-5.1)
[2019-05-17 15:36] LABS: Albumin Globulin Ratio 1.1 (0.9-2); Basophils # (auto) 0.01 K/uL (0-0.2); Basophils % (auto) 0.2 %; Bilirubin,Total 0.3 mg/dl (0.2-1); Eosinophils # (auto) 0.11 K/uL (0-0.5); Eosinophils % (auto) 1.8 %; Globulin 3.3 gm/dl (2.5-4.0); Hematocrit (blood only) 39.2 % (37-47); Hemoglobin 13.3 g/dL (12.0-16.0); Immature Granulocytes # (auto) 0.01 K/uL (0.00-0.02); Immature Granulocytes % (auto) 0.2 %; Lymphocytes # (auto) 1.69 K/uL (1.2-3.4); Lymphocytes % (auto) 27.3 %; Mean Corpuscular Hemoglobin 30.9 pg (25-34); Mean Corpuscular Hgb Conc 33.9 g/dL (32-36); Monocytes # (auto) 0.34 K/uL (0.11-0.59); Monocytes % (auto) 5.5 %; Neutrophils # (auto) 4.02 K/uL (1.4-6.5); Platelet Count 226 K/uL (130-400); RDW Standard Deviation 43.3 fL (36.4-46.3); Red Blood Count 4.31 M/uL (4.2-5.4); White Blood Count 6.18 K/uL (4.8-10.8)
[2019-05-17 15:38] LABS: INR 1.1 (0.9-1.1); Partial Thromboplastin Ratio 0.9; Partial Thromboplastin Time 24.5 Seconds (21.0-31.0); Prothrombin Time 10.8 Seconds (9.0-12.0)
--- NOTE | 2019-05-17 16:57 | History & Physical Report ---
Date of Service May 17, 2019 Assessment & Plan (1) Primary localized osteoarthrosis of right hip: DIAGNOSES: Right hip osteoarthritis. PROCEDURE: Right total hip arthroplasty. PLAN: The patient is scheduled to undergo this procedure with Dr. Varghese Mukherjee at [facility] as an inpatient on 05/30/2019. Risks and complications of the procedure such as infection, bleeding, pain, scarring, nerve, blood vessel damage, weakness, wound problems, stiffness, incomplete relief of symptoms, heart attack, stroke, , hardware failure, loosening, wear, fracture, dislocation, leg length inequality, blood clots and embolism were explained to patient by Dr. Mukherjee at her visit on and informed consent to perform the procedure was obtained at that time. We are still awaiting preoperative medical clearance from the patient's primary care provider, Adelaida Martinez PA-C. We will also need to obtain a preoperative CBC with differential, complete metabolic panel, PT, INR, blood type and screen, urinalysis, urine culture hemoglobin A1c and a nasal culture for MRSA. Her EKG from her previous surgery is till valid. The patient states she will obtain this necessary testing before her preanesthesia clearance appointment this afternoon. The patient will bring her rolling walker. She has her hip kit from previous [facility]. She had x-rays performed with the sizing ball during today's visit. I again educated her about the use of antibiotics prior to dental procedures after having joint replacement surgery. I also provided her with information about lectures provided by [facility] in regards to joint replacement surgery. She was given paperwork to obtain a new handicap placard. I advised her that I will provide her with a prescription for an opioid analgesic and for an anti-inflammatory medication. PDMP was checked during today's visit and no red flags were raised that would interfere with prescribing the narcotic medication. I also advised her that she will be using a baby aspirin twice daily for 30 days postoperatively to prevent blood clots and that she should purchase extra strength Tylenol to use with every other dose of the narcotic for pain control. The patient will need to sleep with an abduction pillow for 6 weeks postoperatively to prevent dislocation. She will be scheduled for a 2-week followup visit with me and at that time, we will remove her dressings. The patient verbalized understanding of all information provided during today's visit, thanked us for the care she has received and states if she has questions or concerns that should arise prior to her procedure date, she will contact the clinic accordingly. History of Present Illness Chief Complaint: Right hip osteoarthritis Primary Care Provider: Adelaida Martinez PA-C CHIEF COMPLAINT: Right hip pain. HISTORY OF PRESENT ILLNESS: This 58-year-old female presents to clinic today for her preoperative history and physical. The patient complains of a longstanding history of right hip pain localized to the groin area that has failed conservative treatment with use of nonsteroidal agents, injections and physical therapy. Recently underwent Left Total hip arthroplasty with great results. PAST SURGICAL HISTORY: Left total hip arthroplasty, Hysterectomy, left foot bunionectomy, hammertoe fixation, cholecystectomy, wisdom tooth extraction and a left knee partial medial meniscectomy with injection of calcium phosphate to fix a patellar fracture. PAST MEDICAL HISTORY: Anxiety, depression, hypertension, gastroesophageal reflux as well as hyperlipidemia and obesity. FAMILY HISTORY: Positive for heart disease, Alzheimer disease, hypertension, hyperlipidemia. ALLERGIES: The patient has no known drug allergies. CURRENT MEDICATIONS USED: EPA fish oil unknown dosage daily, vitamin B12 unknown dosage daily, carvedilol 3.125 mg oral tablet 25 mg twice daily, cholecalciferol, unknown dosage daily, magnesium SR with calcium unknown dosage daily, Nexium unknown dosage daily, nortriptyline 75 mg tablet daily, Xanax 0.5 mg oral tablet 1 tab twice daily as needed for anxiety. Vitals: Last Updated 05/17/19 13:00 Weights: Last Updated 05/17/19 13:00 Date Temp Pulse BP RR SpO2 FIO2 Date Wt(kg) Wt(lb) 05/17 13:00 36.6 87 162/90 96 05/17 13:00 83.5 184 24 Hr Tmax: 36.6 at 05/17 13:00 Initial Wt: No Data Available Allergies Allergy/AdvReac Type Severity Reaction Status Date / Time No Known Allergies Allergy Mild Verified 05/10/19 08:01 Home Medications Home Medications Medication Instructions Recorded Confirmed Type acyclovir [Zovirax] 200 mg PO UD PRN 01/01/19 05/10/19 History alprazolam 0.5 mg PO BID PRN 01/01/19 05/10/19 History aspirin [Aspir-81] 81 mg PO QAM 01/01/19 05/10/19 History calcium carbonate-vitamin D3 1 tab PO QAM 01/01/19 05/10/19 History [Calcium 500 + D] carvedilol 25 mg PO BID 01/01/19 05/10/19 History cholecalciferol (vitamin D3) 2,000 unit PO QAM 01/01/19 05/10/19 History [Vitamin D3] cyanocobalamin (vitamin B-12) 1,500 mcg PO Q2D 01/01/19 05/10/19 History [Vitamin B-12] esomeprazole magnesium 40 mg PO QAM 01/01/19 05/10/19 History mometasone 2 spray INTRANASAL DAILY PRN 01/01/19 05/10/19 History nortriptyline 75 mg PO HS 01/01/19 05/10/19 History omega 3-swv-akx-fish oil [Fish Oil] 1 cap PO QAM 01/01/19 05/10/19 History vitamin B complex 1 tab PO QAM 01/01/19 05/10/19 History Past Med/Surg History Medical History Diverticular disease GERD (gastroesophageal reflux disease) controlled Hypertension Irritable bowel syndrome (IBS) Obesity Osteoarthritis Surgical History History of arthroscopy KNEE, MENICUS. -LEFT History of bilateral tubal ligation History of bunionectomy BUNIONECTOMY AND HAMMER TOE CORRECTION History of cholecystectomy History of colonoscopy History of endoscopy History of hysterectomy History of nasal septoplasty DEVIATED SEPTUM REPAIR History of tooth extraction History of total left hip arthroplasty Left [facility]: 01/24/19: SAB x 2 (L3-L4 --> L4-L5) at [facility] Social History Preferred Language: Micronesian Communication Ability: Effective Fresh Foods Cake Decorator Required: No Beliefs That Will Affect Care: None marital status: Current Living Situation: Spouse Other Information That Helps Us Care for You: No Feels Safe at Home: Yes Smoking Status: Never smoker Do You Dip or Chew Tobacco: No ; Second Hand Exposure: No ; Hx Alcohol Use: Yes Alcohol type: wine Hx Substance Use: No Review of Systems All systems reviewed & are unremarkable except as noted in HPI & below Physical Exam Physical Exam: PHYSICAL EXAMINATION: Skin: The patient's skin is normal in appearance. No open skin lesions or discharge. Eyes: Pupils are equal and react to light and accommodating. Extraocular movements are intact. Throat: Posterior pharynx is clear with absence of edema, erythema or exudate. Cardiovascular exam: The patient has a regular rate and rhythm, no murmurs, gallops appreciated. Lungs: Auscultation of lung quintana reveals clear breath sounds throughout, no wheezing, rales or rhonchi. Abdomen is obese, nondistended, nontender with normoactive bowel sounds. Right hip , the patient is able to flex to 90 degrees before causing recurrent right groin pain. External rotation is limited to 40 degrees, internal rotation to 5 degrees. The patient has a positive Scour and impingement tests, positive Stinchfield test. Log roll test is unremarkable. The patient experiences referred groin pain with active abduction and adduction without applied resistance. JAMES test is 3 fists. The patient has tenderness to palpation over the anterior groin. Otherwise, she is neurovascularly intact in the left lower extremity. Her calf is soft and supple, nontender to palpation. She has no appreciable quadriceps atrophy. Neurological exam: Cranial nerves 2-12 are intact. No motor or sensory deficit. Psychological/general exam: The patient is alert and oriented x3 with proper grooming and hygiene. Results & Data Laboratory Results 05/17/19 05/17/19 05/17/19 Range/Units 14:00 14:00 14:00 WBC (4.8-10.8) K/uL RBC (4.2-5.4) M/uL Hgb (12.0-16.0) g/dL Hct (37-47) % MCV (80-100) fL MCH (25-34) pg MCHC (32-36) g/dL RDW Std Deviation (36.4-46.3) fL RDW Coeff of Franco (11.5-14.5) % Plt Count (130-400) K/uL MPV (7.4-10.4) fL Immature Gran % (Auto) % Neut % (Auto) % Lymph % (Auto) % [place] % (Auto) % Eos % (Auto) % Baso % (Auto) % Immature Gran # (Auto) (0.00-0.02) K/uL Neut # (Auto) (1.4-6.5) K/uL Lymph # (Auto) (1.2-3.4) K/uL [place] # (Auto) (0.11-0.59) K/uL Eos # (Auto) (0-0.5) K/uL Baso # (Auto) (0-0.2) K/uL PT (9.0-12.0) Seconds INR (0.9-1.1) APTT (21.0-31.0) Seconds PTT Ratio Sodium (136-145) mmol/L Potassium (3.5-5.1) mmol/L Chloride (98-107) mmol/L Carbon Dioxide (21-32) mmol/L Anion Gap (3-11) BUN (7-18) mg/dl Creatinine (0.6-1.2) mg/dl Est Cr Clr Drug Dosing ml/min Est GFR ( Amer) Est GFR (Non-Af Amer) BUN/Creatinine Ratio (10-20) Glucose (70-99) mg/dl Estimat Average Glucose Pending Hemoglobin A1c Pending Calcium (8.5-10.1) mg/dl Total Bilirubin (0.2-1) mg/dl AST (15-37) U/L ALT (12-78) U/L Alkaline Phosphatase (45-117) U/L Total Protein (6.4-8.2) gm/dl Albumin (3.4-5.0) gm/dl Globulin (2.5-4.0) gm/dl Albumin/Globulin Ratio (0.9-2) Urine Color Dark Yellow Urine Appearance Clear (Clear) Urine pH 7.5 (4.5-7.5) Ur Specific [place] 1.009 (1.000-1.030) Urine Protein Negative (Negative) Urine Glucose (UA) Negative (Negative) Urine Ketones Negative (Negative) Urine Blood Negative (Negative) Urine Nitrite Negative (Negative) Urine Bilirubin Negative (Negative) Urine Urobilinogen Negative (Negative) Ur Leukocyte Esterase 1+ H (Negative) Urine WBC (Auto) 1-5 (0-5) /hpf Urine RBC (Auto) 0-4 (0-4) /hpf U Hyaline Cast (Auto) 1-5 (0-5) /lpf U Epithel Cells (Auto) >30 H (0-5) /lpf Urine Bacteria (Auto) Negative (Negative) Nasal Screen MRSA (PCR) Pending Blood Type Antibody Screen 05/17/19 05/17/19 05/17/19 Range/Units 14:00 14:00 14:00 WBC (4.8-10.8) K/uL RBC (4.2-5.4) M/uL Hgb (12.0-16.0) g/dL Hct (37-47) % MCV (80-100) fL MCH (25-34) pg MCHC (32-36) g/dL RDW Std Deviation (36.4-46.3) fL RDW Coeff of Franco (11.5-14.5) % Plt Count (130-400) K/uL MPV (7.4-10.4) fL Immature Gran % (Auto) % Neut % (Auto) % Lymph % (Auto) % [place] % (Auto) % Eos % (Auto) % Baso % (Auto) % Immature Gran # (Auto) (0.00-0.02) K/uL Neut # (Auto) (1.4-6.5) K/uL Lymph # (Auto) (1.2-3.4) K/uL [place] # (Auto) (0.11-0.59) K/uL Eos # (Auto) (0-0.5) K/uL Baso # (Auto) (0-0.2) K/uL PT 10.8 (9.0-12.0) Seconds INR 1.1 (0.9-1.1) APTT 24.5 (21.0-31.0) Seconds PTT Ratio 0.9 Sodium 137 (136-145) mmol/L Potassium 4.2 (3.5-5.1) mmol/L Chloride 102 (98-107) mmol/L Carbon Dioxide 28 (21-32) mmol/L Anion Gap 7.0 (3-11) BUN 7 (7-18) mg/dl Creatinine 0.64 (0.6-1.2) mg/dl Est Cr Clr Drug Dosing 93.5 ml/min Est GFR ( Amer) 112.4 Est GFR (Non-Af Amer) 97.0 BUN/Creatinine Ratio 10.3 (10-20) Glucose 90 (70-99) mg/dl Estimat Average Glucose Hemoglobin A1c Calcium 9.4 (8.5-10.1) mg/dl Total Bilirubin 0.3 (0.2-1) mg/dl AST 54 H (15-37) U/L ALT 79 H (12-78) U/L Alkaline Phosphatase 152 H (45-117) U/L Total Protein 7.0 (6.4-8.2) gm/dl Albumin 3.7 (3.4-5.0) gm/dl Globulin 3.3 (2.5-4.0) gm/dl Albumin/Globulin Ratio 1.1 (0.9-2) Urine Color Urine Appearance (Clear) Urine pH (4.5-7.5) Ur Specific [place] (1.000-1.030) Urine Protein (Negative) Urine Glucose (UA) (Negative) Urine Ketones (Negative) Urine Blood (Negative) Urine Nitrite (Negative) Urine Bilirubin (Negative) Urine Urobilinogen (Negative) Ur Leukocyte Esterase (Negative) Urine WBC (Auto) (0-5) /hpf Urine RBC (Auto) (0-4) /hpf U Hyaline Cast (Auto) (0-5) /lpf U Epithel Cells (Auto) (0-5) /lpf Urine Bacteria (Auto) (Negative) Nasal Screen MRSA (PCR) Blood Type A Positive Antibody Screen NEGATIVE 05/17/19 Range/Units 14:00 WBC 6.18 (4.8-10.8) K/uL RBC 4.31 (4.2-5.4) M/uL Hgb 13.3 (12.0-16.0) g/dL Hct 39.2 (37-47) % MCV 91.0 (80-100) fL MCH 30.9 (25-34) pg MCHC 33.9 (32-36) g/dL RDW Std Deviation 43.3 (36.4-46.3) fL RDW Coeff of Franco 13.0 (11.5-14.5) % Plt Count 226 (130-400) K/uL MPV 10.0 (7.4-10.4) fL Immature Gran % (Auto) 0.2 % Neut % (Auto) 65.0 % Lymph % (Auto) 27.3 % [place] % (Auto) 5.5 % Eos % (Auto) 1.8 % Baso % (Auto) 0.2 % Immature Gran # (Auto) 0.01 (0.00-0.02) K/uL Neut # (Auto) 4.02 (1.4-6.5) K/uL Lymph # (Auto) 1.69 (1.2-3.4) K/uL [place] # (Auto) 0.34 (0.11-0.59) K/uL Eos # (Auto) 0.11 (0-0.5) K/uL Baso # (Auto) 0.01 (0-0.2) K/uL PT (9.0-12.0) Seconds INR (0.9-1.1) APTT (21.0-31.0) Seconds PTT Ratio Sodium (136-145) mmol/L Potassium (3.5-5.1) mmol/L Chloride (98-107) mmol/L Carbon Dioxide (21-32) mmol/L Anion Gap (3-11) BUN (7-18) mg/dl Creatinine (0.6-1.2) mg/dl Est Cr Clr Drug Dosing ml/min Est GFR ( Amer) Est GFR (Non-Af Amer) BUN/Creatinine Ratio (10-20) Glucose (70-99) mg/dl Estimat Average Glucose Hemoglobin A1c Calcium (8.5-10.1) mg/dl Total Bilirubin (0.2-1) mg/dl AST (15-37) U/L ALT (12-78) U/L Alkaline Phosphatase (45-117) U/L Total Protein (6.4-8.2) gm/dl Albumin (3.4-5.0) gm/dl Globulin (2.5-4.0) gm/dl Albumin/Globulin Ratio (0.9-2) Urine Color Urine Appearance (Clear) Urine pH (4.5-7.5) Ur Specific [place] (1.000-1.030) Urine Protein (Negative) Urine Glucose (UA) (Negative) Urine Ketones (Negative) Urine Blood (Negative) Urine Nitrite (Negative) Urine Bilirubin (Negative) Urine Urobilinogen (Negative) Ur Leukocyte Esterase (Negative) Urine WBC (Auto) (0-5) /hpf Urine RBC (Auto) (0-4) /hpf U Hyaline Cast (Auto) (0-5) /lpf U Epithel Cells (Auto) (0-5) /lpf Urine Bacteria (Auto) (Negative) Nasal Screen MRSA (PCR) Blood Type Antibody Screen
[2019-05-18 07:16] LABS: Estimated Average Glucose 117 mg/dl; Hemoglobin A1C 5.7 % (4.5-5.6)
[2019-05-30] MEDS ORDERED: CEFAZOLIN 2000MG 2,000 MG/15 ML SYR IV SCH (06:00)
[2019-05-30] MEDS ORDERED: LR 60ML/HR IV SCH (06:00)
[2019-05-30] MEDS ORDERED: ROPIVACAINE 0.5% HCL/PF 150 MG, BUPIVACAINE 0.5% MPF 30 ML, EPINEPHrine 0.15 MG, Ketoro... INFIL SCH (06:00)
[2019-05-30] MEDS ORDERED: LR 500ML BOLUS, THEN 15ML/HR IV SCH (06:00)
[2019-05-30] MEDS ORDERED: TRAMADOL HCL 50 MG TABLET PO SCH (06:00)
[2019-05-30] MEDS ORDERED: CeleBREX 200 MG CAP PO SCH (06:00)
[2019-05-30] MEDS ORDERED: TRANEXAMIC ACID 1,000 MG **IV Pre-op IV SCH (06:00)
[2019-05-30] MEDS ORDERED: FAMOTIDINE 20 MG TAB PO SCH (06:00)
[2019-05-30] MEDS ORDERED: SCOPOLAMINE 1.5 MG TDSY TD SCH (06:00)
[2019-05-30] MEDS ORDERED: dexAMETHasone 4 MG TAB PO SCH (06:00)
[2019-05-30] MEDS ORDERED: ACETAMINOPHEN 500 MG TAB PO SCH (06:00)
[2019-05-30] MEDS ORDERED: METOCLOPRAMIDE HCL 10 MG TABLET PO SCH (06:00)
[2019-05-30] MEDS ORDERED: TRANEXAMIC ACID 1,000 MG **IV Intra-op IV SCH (06:30)
[2019-05-30] MEDS ORDERED: BUPIVACAINE 0.5 % 5 MG/1 ML PF 10ML VIAL ONE (06:32)
[2019-05-30] MEDS ORDERED: PROPOFOL IV EMULSION 10 MG/ML 20 ML VIAL IV ONE (06:34)
[2019-05-30] MEDS ORDERED: LIDOCAINE HCL 2% 2 ML VIAL/AMP(20MG/ML) INFIL ONE (06:34)
[2019-05-30] MEDS ORDERED: MIDAZOLAM HCL 1 MG/ML 2ML VIAL ONE ×3 (06:35→07:32)
--- NOTE | 2019-05-30 06:35 | History & Physical Bridge Note ---
Date of Service May 30, 2019 History & Physical Bridge Note I have examined the patient, reviewed the History & Physical and in the interval since the performance of the History & Physical I have noted the following changes of clinical significance: no changes noted
[2019-05-30] MEDS ORDERED: ORTHO JOINT ANESTHETIC ONE (06:52)
[2019-05-30] MEDS ORDERED: ePHEDrine sulfate 50 MG/ML AMP IV PRN (06:58)
[2019-05-30] MEDS ORDERED: ATROPINE SULFATE 0.1 MG/ML 10ML SYR IV PRN (06:58)
[2019-05-30] MEDS ORDERED: KETOROLAC 30 MG/ML VIAL IV PRN (06:58)
[2019-05-30] MEDS ORDERED: ONDANSETRON INJ 2 MG/ML 2 ML VIAL IV PRN ×2 (06:58→09:11)
[2019-05-30] MEDS ORDERED: HYDROmorphone INJ 1 MG/ML SYRINGE IV PRN (06:58)
[2019-05-30] MEDS ORDERED: PHENYLEPHRINE 100MCG/ML 5ML SYR IV PRN (06:58)
[2019-05-30] MEDS ORDERED: SODIUM CHLORIDE 0.9% INJ 10 ML VIAL ONE (08:07)
[2019-05-30] MEDS ORDERED: KETAMINE HCL INJ 50 MG/ML 10 ML VIAL ONE (08:07)
--- NOTE | 2019-05-30 09:10 | Operative Report ---
Post Operative Report Pre & Post Diagnosis Operation Date: 05/30/19 07:15 Pre-Op Diagnosis: Right hip osteoarthritis Post-Op Diagnosis: Right hip osteoarthritis Procedure Operation Date: 05/30/19 07:15 Actual Procedures p Right Total Hip Arthroplasty, uncemented, Depuy(Right) - Varghese Mukherjee MD Surgeon Varghese Mukherjee MD Christmas Tree Contractor Omar Ordoñez PAKatharina Estimated Blood Loss 100 Findings Consistent with Post-Op Diagnosis Specimens Right femoral head Complications none Disposition Accompanied Patient To Recovery: Yes Disposition: Recovery Room Description of Procedure I was present during the entire case assisting with wound closure and dressing application. Please see Dr. Mukherjee procedure note for specifics of the case. I attest to the content of the Intraoperative Record and any orders documented therein. Any exceptions are noted below.
[2019-05-30] MEDS ORDERED: HYDROmorphone INJ 0.5 MG/0.5 ML SYR IV PRN (09:11)
[2019-05-30] MEDS ORDERED: METOCLOPRAMIDE HCL INJ 5 MG/ML 2 ML VIAL IV PRN (09:11)
[2019-05-30] MEDS ORDERED: MAGNESIUM HYDROXIDE SUSP 30 ML UDC PO PRN (09:11)
[2019-05-30] MEDS ORDERED: ALUMINUM/MAGNESIUM SUSP 30 ML UDC PO PRN (09:11)
[2019-05-30] MEDS ORDERED: OXYCODONE HCL IR 5 MG TAB (IMMEDIATE RELEASE) PO PRN (09:11)
[2019-05-30] MEDS ORDERED: BISACODYL 10 MG SUPP PR PRN (09:11)
[2019-05-30] MEDS ORDERED: TRAMADOL HCL 50 MG TABLET PO PRN (09:11)
[2019-05-30] MEDS ORDERED: DiphenhydrAMINE HCL 50 MG/ML VIAL IV PRN (09:11)
[2019-05-30] MEDS ORDERED: NALOXONE HCL 0.4 MG/1 ML VIAL/CARP IV PRN (09:11)
--- NOTE | 2019-05-30 09:12 | Post Operative Brief Note ---
Immediate Post Op Note v1 Date of Surgery May 30, 2019 Pre & Post Diagnosis Operation Date: 05/30/19 07:15 Pre-Op Diagnosis: Right hip osteoarthritis Post-Op Diagnosis: Right hip osteoarthritis Procedure Operation Date: 05/30/19 07:15 Actual Procedures p Right Total Hip Arthroplasty, uncemented, Depuy(Right) - Varghese Mukherjee MD Surgeon Varghese Mukherjee MD Instrument Technician Apprentice Omar Ordoñez PAKatharina Estimated Blood Loss 100 Findings Consistent with Post-Op Diagnosis Fluids 1400 cc Specimens Femoral head Anesthesia Type Spinal MAC Complications none Disposition Accompanied Patient To Recovery: No Disposition: Recovery Room
[2019-05-30] MEDS ORDERED: ALPRAZolam 0.5 MG TABLET PO PRN (09:15)
[2019-05-30] MEDS ORDERED: ACYCLOVIR 200 MG CAP PO PRN (09:15)
--- NOTE | 2019-05-30 10:10 | XRay Report ---
XR hip 1V RT w pelvis CLINICAL HISTORY: Degenerative arthritis. Right hip surgery. COMPARISON: 05/17/2019 DISCUSSION: There has been no change in the appearance of a total left hip arthroplasty. Now evident is a total right hip arthroplasty. The femoral and acetabular components appear well seated. There ar e no acute fractures. There is no dislocation. IMPRESSION: Postsurgical changes of a total right hip arthroplasty. Electronically signed by: Nicolas Monae M.D. 05/30/2019 10:08 AM
--- NOTE | 2019-05-30 10:12 | Operative Report ---
DATE OF OPERATION: 05/30/2019 PREOPERATIVE DIAGNOSIS: Right hip arthritis. POSTOPERATIVE DIAGNOSES: Right hip arthritis. OPERATION PERFORMED: Right total hip arthroplasty. SURGEON: Varghese Mukherjee MD. MACHINE GUNNER: Niesha Ordoñez PA-C. ESTIMATED BLOOD LOSS: 100 mL. INTRAVENOUS FLUIDS: 1400 mL crystalloid. SPECIMENS: None. COMPLICATIONS: None. IMPLANTS: 1. DePuy Gription 52 mm outer diameter acetabular sector cup. 2. A 6.5 mm x 35 mm cancellous bone screw. 3. Ultrex polyethylene liner for a 32 mm femoral head. 4. DePuy Torrance size 4 standard offset femoral stem. 5. A 36 mm ceramic femoral head with a +5 offset. INDICATIONS: Ms. Mcdaniels is a 59-year-old female who is status post a left total hip arthroplasty in January of this year with a good result. She has [id number] osteoarthritis in the right hip that has failed conservative management. I had a long discussion with her about the risks and benefits of surgery, alternatives to surgery and expected outcomes. After reviewing all these, she elected to proceed with surgery. All questions were answered. Informed consent was signed. OPERATIVE FINDINGS: The patient had degenerative osteoarthritis of the hip. A ceramic on polyethylene bearing arthroplasty was performed through posterior approach. DESCRIPTION OF THE OPERATION: The patient was identified in the preoperative holding area where her surgical site was marked. She was given a spinal by anesthesia and brought back to main operating room. She was placed on the operating room table and IV sedation was administered. She was moved in lateral decubitus position. Axillary roll was placed. All bony prominences were padded. Perioperative antibiotics were administered. She was prepped and draped in the normal sterile fashion. Prior to incision, a multidisciplinary timeout was called. All in the room were in agreement. We began by making a 14 cm long incision for posterior approach to the hip. Fascia was incised in line with the incision. Charnley bow was placed. Trochanteric bursa was excised. The quadratus femoris and short external rotators were dissected off of the posterior aspect of the hip as well as the piriformis. A box cut was made in the capsule. The hip was dislocated. Our femoral neck cut was made at 10 mm, which was our preoperative template. The acetabulum was then exposed. The contents of cotyloid fossa as well as the labrum were excised. We began reaming to medialize her acetabulum and then gradually reamed up. She reamed to a size 52, which gave us a healthy bleeding bone circumferentially. We then irrigated out the acetabulum and opened up the DePuy Gription 52 mm outer diameter acetabular sector cup. This was impacted into position with 25 degrees of anteversion and 40 degrees of lateral opening. Single cancellous bone screw was placed. Excellent fixation was obtained. The outer shell was irrigated out and then the polyethylene liner for a 32 mm femoral head was placed. Next, the femoral neck was exposed. The lateral neck was excised with a cookie cutter. Intramedullary guide was used followed by the reamers. She did ream up to a size 4. However, as we broached her up, the size 4 stem sat too proud. We tried the trial with the size 4 broach and we were unable to reduce the hip. Therefore, we downsized her to a size 3 Torrance stem. This still had excellent torsional stability and sat at the level of the femoral neck cut. We then placed our standard offset neck with a +5 head. We were able to atraumatically reduce the hip. She had excellent stability with symmetric leg lengths, no impingement in external rotation and extension, stable in the sleeper position, and at 90 degrees of hip flexion, she could be internally rotated 45 degrees before levering out of the cup. I was very happy with stability exam; therefore, removed the size 3 stem. The real size 3 standard offset stem was opened up and impacted down into the femoral canal, which had been irrigated and dried. It sat 1 mm proud from the broach and therefore, we opened up the +5 ceramic femoral head and impacted it onto the trunnion, which had been cleaned and dried. The hip was atraumatically reduced. The wound was irrigated with a dilute Betadine solution. The periarticular injection was placed. The short external rotators and capsule were repaired through bone tunnels in the posterior aspect of the greater trochanter using #2 Vicryl suture. The fascia was run with a looped #1 PDS. Two layers of #1 PDS were used for the subcutaneous tissues. A 2-0 Vicryl was used for the dermal layer. A ZipLine was used for the skin followed by a Silverlon dressing. The patient's sedation was lifted. The patient was transferred to the recovery room in stable condition. POSTOPERATIVE COURSE: The patient will be admitted overnight for pain control and to work with physical therapy. She will have posterior hip precautions. She will be on aspirin for DVT prophylaxis. I attest to the content of the Intraoperative Record and any orders documented therein. Any exceptions are noted below. NORM
[2019-05-30] MEDS: SODIUM CHLORIDE 0.9% 1000ML 1,000 ML IV SCH ×2 (10:31→20:46)
[2019-05-30] MEDS ORDERED: FLUTICASONE PROPIONATE NA SPR 16 GM BTL PRN (11:00)
[2019-05-30] MEDS ORDERED: CYANOCOBALAMIN 500 MCG TABLET (VITAMIN B-12) PO SCH (11:00)
[2019-05-30] MEDS: KETOROLAC 30 MG/ML VIAL IV SCH ×2 (11:37→19:04)
--- NOTE | 2019-05-30 11:45 | Anesthesiology Progress Note ---
Date of Service May 30, 2019 Anesthesia Post Procedure Vital Signs Vital Signs: Temp Pulse Pulse Resp BP Pulse Ox 05/30/19 11:18 83 16 111/73 96 05/30/19 10:39 85 16 110/73 97 05/30/19 10:10 36.7 C 83 16 105/69 96 05/30/19 09:50 84 15 106/63 94 05/30/19 09:40 36.7 C 83 14 109/66 96 05/30/19 09:30 84 15 102/70 97 05/30/19 09:20 84 15 110/72 97 05/30/19 09:10 36.0 C L 84 15 100/73 97 05/30/19 05:36 36.8 C 95 H 20 130/91 98 Pain Intensity Right Hip: Pain Intensity: 0 Transfer of Care Handoff Completed per policy Notes Mental Status: alert / awake / arousable Patient Amnestic to Procedure: Yes Nausea / Vomiting: adequately controlled Pain: adequately controlled Airway Patency, RR, SpO2: stable & adequate BP & HR: stable & adequate Hydration State: stable & adequate Anesthetic Complications: no major complications apparent
[2019-05-30] MEDS: ACETAMINOPHEN 500 MG TAB PO SCH ×2 (13:36→20:54)
[2019-05-30] MEDS: CEFAZOLIN 2000MG 2,000 MG/15 ML SYR IV SCH ×2 (13:37→22:48)
[2019-05-30] MEDS ORDERED: TRANEXAMIC ACID 1,000 MG in 0.9 % SODIUM CHLORIDE 100 ML IV SCH (15:11)
[2019-05-30] MEDS: CHECK SCOPOLAMINE PATCH PLACEMENT SCH (16:58)
[2019-05-30] MEDS: DOCUSATE SODIUM 100 MG CAP PO SCH (20:48)
[2019-05-30] MEDS: ASPIRIN 81 MG ECTAB PO SCH (20:49)
[2019-05-30] MEDS: CARVEDILOL 25 MG TAB PO SCH (20:50)
[2019-05-30] MEDS ORDERED: ASPIRIN 81 MG ECTAB PO SCH (21:00)
[2019-05-30] MEDS ORDERED: NORTRIPTYLINE HCL 25 MG CAP PO SCH (21:00)
[2019-05-30] MEDS ORDERED: SENNA 8.6 MG TAB PO SCH (21:00)
[2019-05-31] MEDS: CHECK SCOPOLAMINE PATCH PLACEMENT SCH (00:29)
[2019-05-31] MEDS: KETOROLAC 30 MG/ML VIAL IV SCH ×2 (00:30→05:30)
[2019-05-31] MEDS: SODIUM CHLORIDE 0.9% 1000ML 1,000 ML IV SCH (01:28)
[2019-05-31] MEDS: ACETAMINOPHEN 500 MG TAB PO SCH (05:30)
[2019-05-31 06:02] LABS: Immature Granulocytes # (auto) 0.02 K/uL (0.00-0.02); Immature Granulocytes % (auto) 0.2 %; Lymphocytes # (auto) 0.69 K/uL (1.2-3.4); Lymphocytes % (auto) 6.3 %; Mean Corpuscular Hemoglobin 30.7 pg (25-34); Mean Corpuscular Hgb Conc 33.3 g/dL (32-36); Mean Corpuscular Volume 92.2 fL (80-100); Mean Platelet Volume 9.6 fL (7.4-10.4); Monocytes # (auto) 0.65 K/uL (0.11-0.59); Monocytes % (auto) 5.9 %; Neutrophils # (auto) 9.64 K/uL (1.4-6.5); Neutrophils % (auto) 87.6 %; Platelet Count 175 K/uL (130-400); RDW Standard Deviation 44.1 fL (36.4-46.3); Red Blood Count 3.58 M/uL (4.2-5.4)
[2019-05-31 06:36] LABS: BUN Creatinine Ratio 13.7 (10-20); Calcium 8.2 mg/dl (8.5-10.1); Creatinine Clr Calc Pharmacy 82.8 ml/min; Est GFR (African American) 105.5; Potassium 3.9 mmol/L (3.5-5.1)
[2019-05-31] MEDS ORDERED: dexAMETHasone 4 MG TAB PO SCH (08:00)
[2019-05-31] MEDS: CARVEDILOL 25 MG TAB PO SCH (08:19)
[2019-05-31] MEDS: ASPIRIN 81 MG ECTAB PO SCH (08:19)
[2019-05-31] MEDS: DOCUSATE SODIUM 100 MG CAP PO SCH (08:19)
[2019-05-31] MEDS ORDERED: MULTIVITAMIN TAB PO SCH (09:00)
[2019-05-31] MEDS ORDERED: OMEGA-3 (PURIFIED FISH OIL) 1 GM CAP PO SCH (09:00)
[2019-05-31] MEDS ORDERED: CALCIUM 600MG + VIT D 400 IU TAB PO SCH (09:00)
[2019-05-31] MEDS ORDERED: CHOLECALCIFEROL 1,000 UNITS TAB PO SCH (09:00)
[2019-05-31] MEDS ORDERED: PANTOprazole 40 MG TAB PO SCH (09:00)
[2019-05-31] MEDS ORDERED: VITAMIN B COMPLEX TAB PO SCH (09:00)
--- NOTE | 2019-05-31 09:24 | Orthopedic Progress Note ---
Date of Service May 31, 2019 Assessment & Plan (1) S/P total hip arthroplasty: PT/OT this AM Discharge home if passes PT Follow-up 2 weeks Subjective Patient had some numbness around her hip and thigh yesterday from the periarticular injection that is wearing off. Pain well controlled. Denies f/c/cp/sob. Physical Exam Physical Exam: NAD R hip: dressing c/d/i. Distally NVI. Results & Data Vital Signs (Past 12 Hours) Vital Signs Temp Pulse Resp BP Pulse Ox 05/31/19 08:30 36.6 C 88 16 115/77 94 05/31/19 07:13 36.6 C 88 16 115/77 94 05/31/19 03:03 36.8 C 91 H 16 112/76 93 05/30/19 22:53 37.1 C 83 16 125/85 94
[2019-05-31] MEDS ORDERED: CeleBREX 200 MG CAP PO SCH (21:00)
--- NOTE | 2019-06-03 12:48 | Discharge Summary ---
Date of Service June 03, 2019 Admission HPI Per Admitting Provider CHIEF COMPLAINT: Right hip pain. HISTORY OF PRESENT ILLNESS: This 58-year-old female presents to clinic today for her preoperative history and physical. The patient complains of a longstanding history of right hip pain localized to the groin area that has failed conservative treatment with use of nonsteroidal agents, injections and physical therapy. Recently underwent Left Total hip arthroplasty with great results. PAST SURGICAL HISTORY: Left total hip arthroplasty, Hysterectomy, left foot bunionectomy, hammertoe fixation, cholecystectomy, wisdom tooth extraction and a left knee partial medial meniscectomy with injection of calcium phosphate to fix a patellar fracture. PAST MEDICAL HISTORY: Anxiety, depression, hypertension, gastroesophageal reflux as well as hyperlipidemia and obesity. FAMILY HISTORY: Positive for heart disease, Alzheimer disease, hypertension, hyperlipidemia. ALLERGIES: The patient has no known drug allergies. CURRENT MEDICATIONS USED: EPA fish oil unknown dosage daily, vitamin B12 unknown dosage daily, carvedilol 3.125 mg oral tablet 25 mg twice daily, cholecalciferol, unknown dosage daily, magnesium SR with calcium unknown dosage daily, Nexium unknown dosage daily, nortriptyline 75 mg tablet daily, Xanax 0.5 mg oral tablet 1 tab twice daily as needed for anxiety. Vitals: Last Updated 05/17/19 13:00 Weights: Last Updated 05/17/19 13:00 Date Temp Pulse BP RR SpO2 FIO2 Date Wt(kg) Wt(lb) 05/17 13:00 36.6 87 162/90 96 05/17 13:00 83.5 184 24 Hr Tmax: 36.6 at 05/17 13:00 Initial Wt: No Data Available Admission Exam Per Admitting Provider PHYSICAL EXAMINATION: Skin: The patient's skin is normal in appearance. No open skin lesions or discharge. Eyes: Pupils are equal and react to light and accommodating. Extraocular movements are intact. Throat: Posterior pharynx is clear with absence of edema, erythema or exudate. Cardiovascular exam: The patient has a regular rate and rhythm, no murmurs, gallops appreciated. Lungs: Auscultation of lung quintana reveals clear breath sounds throughout, no wheezing, rales or rhonchi. Abdomen is obese, nondistended, nontender with normoactive bowel sounds. Right hip , the patient is able to flex to 90 degrees before causing recurrent right groin pain. External rotation is limited to 40 degrees, internal rotation to 5 degrees. The patient has a positive Scour and impingement tests, positive Stinchfield test. Log roll test is unremarkable. The patient experiences referred groin pain with active abduction and adduction without applied resistance. JAMES test is 3 fists. The patient has tenderness to palpation over the anterior groin. Otherwise, she is neurovascularly intact in the left lower extremity. Her calf is soft and supple, nontender to palpation. She has no appreciable quadriceps atrophy. Neurological exam: Cranial nerves 2-12 are intact. No motor or sensory deficit. Psychological/general exam: The patient is alert and oriented x3 with proper grooming and hygiene. Principal Diagnosis Right hip osteoarthritis Discharge Exam NAD R hip: dressing c/d/i. Distally NVI. Discharge Data Allergies Allergy/AdvReac Type Severity Reaction Status Date / Time No Known Allergies Allergy Mild Verified 05/30/19 05:42 Consultations 05/31/19 08:00 Consult Case Management - Discharge Planning Routine Procedures Performed Operation Date: 05/30/19 07:15 Actual Procedures p Right Total Hip Arthroplasty, uncemented, Depuy(Right) - Varghese Mukherjee MD Hospital Course (1) S/P total hip arthroplasty: Patient did well overnight. Pain well controlled with PO meds. Will be discharged home today after PT/OT with home health rehab services. PT/OT this AM Discharge home if passes PT Follow-up 2 weeks Total Time Total Time Spent Total Time Spent (In Minutes): 20 mins Discharge Plan Discharge Items Patient Disposition: Home - Home Health Services Reason For Visit: Right Hip Arthritis Discharge Diagnosis: Right hip osteoarthritis Activity: As commented below Lifting: None Bathing: Keep incision dry Bathing Comment: May shower tomorrow Sexual Activity: Wait until after follow-up appointment Exercise/Sports: Wait until after follow-up appointment Driving/Machine Use: No driving until cleared by cardiology specialist Weightbearing: Right weightbearing Weightbearing Comment: as tolerated with walker assistance Non-emergency contact: Primary Care Provider Call non-emergency contact if: you have any medication questions, your pain is not controlled, your temperature is above 101.5, your wound has increased redness and your wound has increased drainage Follow-up/Referrals: Adelaida Martinez PA-C [Primary Care Provider] - Diet: Regular Addtl Attending Provider Instructions: Post-operative Instructions Dear Patient and Family/Friends, Before you are discharged from the hospital, it is important to know what to expect when you get home after surgery. To that end, we have created this sheet of discharge instructions which covers many commonly asked questions. Make sure you go through this sheet in its entirety with your nurse before you are discharged. Please note that we will go over the specifics of your surgery and recovery when you return for your first post-operative visit. Sincerely, Dr. Mukherjee Medications 1. Oxycodone 5 mg: take 1-2 tabs by mouth every 4-6 hrs as needed for pain 2. Diclofenac Sodium 75 mg: take 1 tab twice daily for 30 days post operatively 3. Extra Strength Tylenol 500mg: Take 2 tabs every 6 hrs as needed for pain for 30 days post-op 4. Increase your daily 81 mg Aspirin to twice daily for 30 days post-op Pain Expect to be in a fair amount of pain after surgery. Remember, our goal is not to eliminate your pain, but to make it tolerable. It is a good idea to stay ahead of your pain by taking the medications you were prescribed once you get home. Typically, the pain starts improving 3-7 days after surgery. You should start weaning off the narcotic pain medication (oxycodone, hydrocodone, hydromorphone, morphine) as soon as your pain improves. Please call our office if your pain is not adequately controlled. Ice Ice your operative site at least 5 times a day for 15-30 minutes at a time. Make sure you have a thin cloth between the ice or cooling unit and your skin to prevent genao bite. This is especially important if you received a nerve block. Continue icing your operative site for the first 5-7 days after surgery, then as needed. Diet/Nausea/Vomiting Start by drinking clear liquids and eating crackers. If you can tolerate this, then you may resume your normal diet. If you feel nauseated or vomit, take Zofran/ondansetron (if prescribed). Please call our office if you have intractable nausea or vomiting, or, if after hours, you may go to the Emergency Room for help. Constipation Constipation is a common side effect of narcotic pain medication. If you have not had a bowel movement within 2 days after surgery, we recommend purchasing an over the counter laxative such as Milk of Magnesia, Dulcolax, or Miralax from a local pharmacy, and taking it as instructed. Call our clinic if any questions. Nerve block The anesthesia team sometimes places a nerve block to help with post-operative pain control. This results in significant numbness and inability to move the extremity. The nerve block usually wears off in 8-12 hours, but sometimes can last up to 24 hours. Please call our office if you are still unable to move your extremity after 24 hours, unless you received a pain pump to take home. Nerve blocks typically wear off quickly, so start taking pain medication as soon as you start feeling soreness near your surgical site. Weight bearing and Range of Motion. Do not bear any weight through your operative extremity immediately after surgery. If you had upper extremity surgery, do not lift anything with that arm. If you are in a knee brace, keep it locked in place until your follow-up. We will discuss your weight bearing, range of motion, and lifting restrictions in detail at your first post-operative appointment. Continuous Passive Motion (CPM) Machine If you were prescribed a CPM machine, it will start after your first post-operative appointment, at which time we will give you instructions on the range of motion settings and duration of treatment Physical therapy You will be given a prescription for physical therapy or occupational therapy at your first post-operative appointment. Typically, patients start therapy within 1 week of surgery Wound care and showering We will inspect your wound at your first post-operative visit, and may do a dressing change at that time. Most patients will be in a water-proof dressing that is removed 14 days after surgery. It is normal to see some dried blood on the dressing. Do not remove your dressing, paper strips or sutures yourself unless you are given permission. Showering is allowed the day after surgery. Do not scrub or remove any dressings. The wound should not be submerged underwater (i.e. in a bathtub or pool) until 4 weeks after surgery EJ stockings If you were given white stockings, these are to be worn at all times except to shower (on both legs) for the first 2 weeks after surgery. Driving You may not drive while taking narcotic pain medication or while in a cast, splint, sling or brace. You, the patient, need to make the final determination about when you are safe to drive, however, the earliest you may consider driving after surgery is below: Hand/Wrist/Elbow Surgery: 3 days Shoulder Surgery: 2 weeks Hip,/Knee/Ankle Surgery: 4 weeks Fracture repair: 6 weeks Return to Work Your return to work depends on what surgery was done and what type of work you do. Please bring any paperwork your employer needs completed to your first post-operative visit. Also, bring a description of your job duties, as this helps us to understand what risks you may face at work. Travel Avoid long distance travel (greater than 1 hour) in airplanes and cars for the first 6 weeks after surgery. If you must travel, you need to have a Doppler ultrasound done before you travel to rule out a blood clot in your legs. Follow-up You should have a follow-up appointment already scheduled 1-2 days after surgery. If not, please contact our office to make this appointment before you leave the hospital. When to call the office It is normal to have swelling and bruising in the limb that was operated on. This will improve with time. It is also normal to have fevers for the first 2 days after surgery. Reasons you should call your doctor include: Uncontrolled pain; Nausea, vomiting, or constipation that does not improve with medication; Fevers over 101.5, chills, sweats; Drainage or bleeding from the wound; Foul odor; Spreading areas of redness; Any other concerns Pending Studies at Discharge: No Stand-Alone Forms: [facility] Medications and DC Order Prescriptions: New diclofenac sodium 75 mg tablet,delayed release (DR/EC) 75 mg PO BID PRN (Reason: pain) 30 Days Qty: 60 RF: 1 oxycodone 5 mg tablet 5 mg PO Q6H MDD 2 tabs q 4-6 hrs prn PRN (Reason: pain) Qty: 30 RF: 0 Continued carvedilol 25 mg Tablet 25 mg PO BID RF: 0 cyanocobalamin (vitamin B-12) [Vitamin B-12] 1,000 mcg Tablet 1,500 mcg PO Q2D RF: 0 acyclovir [Zovirax] 200 mg Capsule 200 mg PO UD PRN (Reason: Cold Sores) RF: 0 alprazolam 0.5 mg Tablet 0.5 mg PO BID PRN (Reason: Anxiety) RF: 0 nortriptyline 75 mg Capsule 75 mg PO HS RF: 0 esomeprazole magnesium 40 mg Capsule,Delayed Release(Dr/Ec) 40 mg PO QAM RF: 0 mometasone 50 mcg/actuation [place],Non-Aerosol 2 spray INTRANASAL DAILY PRN (Reason: ALLERGIES) RF: 0 vitamin B complex Tablet 1 tab PO QAM RF: 0 calcium carbonate-vitamin D3 [Calcium 500 + D] 500 mg(1,250mg) -200 unit Tablet 1 tab PO QAM RF: 0 cholecalciferol (vitamin D3) [Vitamin D3] 2,000 unit Tablet 2,000 unit PO QAM RF: 0 omega 8-dic-qbj-fish oil [Fish Oil] 1,000 mg (120 mg-180 mg) Capsule 1 cap PO QAM RF: 0 Changed aspirin [Aspir-81] 81 mg Tablet,Delayed Release (Dr/Ec) 81 mg PO BID Qty: 0 RF: 0 Discharge Orders: Discharge Order (Routine); Ordered 05/30/19 Ordered By: Emmanuel Ordoñez Admission Data Admit Date/Time: 05/30/19 09:11 Attending Provider: Varghese Mukherjee Admit Provider: Varghese Mukherjee Primary Care Provider: Adelaida Martinez Other Interventions: Discharge Summary Assessment (RN) Last Done: 05/31/19 08:30 DC Date/Time DO NOT enter until pt leaves facility: 05/31/19 12:30
== END 2019-05-31 12:30 | disposition home or self-care (01) | DRG 470 ==
LOC: ASU 04:54 → 3E 09:11
DX: Z83.49 Family history of other endocrine, nutritional and metabolic diseases; F32.9 Major depressive disorder, single episode, unspecified; Z79.899 Other long term (current) drug therapy; Z79.82 Long term (current) use of aspirin; F41.9 Anxiety disorder, unspecified; Z82.49 Family history of ischemic heart disease and other diseases of the circulatory system; K21.9 Gastro-esophageal reflux disease without esophagitis; M16.11 Unilateral primary osteoarthritis, right hip; E66.9 Obesity, unspecified; Z68.33 Body mass index [BMI] 33.0-33.9, adult; I10 Essential (primary) hypertension; Z96.642 Presence of left artificial hip joint; E78.5 Hyperlipidemia, unspecified